=== PATIENT | male | born 1965 | race Caucasian/White ===

== ENCOUNTER → 2017-04-18 | Outpatient (CLI) | payer MEDICARE, OTHER ==
--- NOTE | 2017-04-18 16:48 | RAD ---
ABDOMEN LTD Clinical Indication: Polycythemia Vera; monitoring sz of Spleen; Comparison: None. Technique: Limited abdominal ultrasound to evaluate the liver and spleen was performed. Findings: The spleen is enlarged measuring 14.0 x 11.2 x 12.7 cm. Splenic artery peak systolic velocity measures 35.1 cm/s with a resistive index of 0.54. Splenic vein is patent. The liver is normal in size and echogenicity measuring 16.2 cm. Hepatopedal portal venous flow. Patent hepatic vein. IMPRESSION: Splenomegaly measuring up to 14.0 cm.
== END | disposition home or self-care (01) ==
LOC: US 10:05
DX: D45 Polycythemia vera (principal); R16.1 Splenomegaly, not elsewhere classified; R56.9 Unspecified convulsions
CPT/HCPCS: 76705

== ENCOUNTER → 2018-05-08 | Day surgery (SDC) | payer MEDICARE, OTHER ==
[~2018-05-08] MED LIST: ALLO300T PO; BENA20TA4 PO; HYDR500C16 PO; IV RINGERS,LACTATED 1000ML 1,000 ML IV SCH; LIDOCAINE 1% PF 2 ML VIAL. ID PRN; LIDOCAINE 1% PF 2 ML VIAL. ONE; METO100T7 PO; MIDAZOLAM HCL/PF 2 MG/2 ML VIAL. IV PRN; PROPOFOL 20 ML IV ONE; fentaNYL PF VIAL 100 MCG/2 ML VIAL IV PRN
[2018-05-08 10:10] VITALS: BP 130/76
--- NOTE | 2018-05-08 10:46 | HP ---
ADMIT DATE: 05/08/2018 UPDATE HISTORY AND PHYSICAL REASON FOR THE VISIT: History of colonic polyps. HISTORY OF PRESENT ILLNESS: A 52-year-old male whose past medical history is significant for gout and hypertension, is seen for history of polyps. Surveillance exam was performed in 2014. Interval exam was recommended at this time. There has been no melena and/or hematochezia. There has been no diarrhea or constipation. Weight and appetite are stable. He is otherwise without additional complaints. PAST MEDICAL HISTORY: History of colonic polyps, gout and hypertension. ALLERGIES: None. MEDICATIONS: Include allopurinol, benazepril, hydroxyurea and metoprolol. PAST SURGICAL HISTORY: Noncontributory. FAMILY AND SOCIAL HISTORY: Nonsmoker, social drinker. REVIEW OF SYSTEMS: Per records. PHYSICAL EXAMINATION: GENERAL: Reveals a well-nourished, well-developed male. VITAL SIGNS: Temperature is 97.9, pulse 105 and respirations 20. HEENT EXAMINATION: Normocephalic and atraumatic head. Pupils and extraocular muscles are not tested. Sclerae anicteric. NECK: Supple. LUNGS: Clear. CARDIOVASCULAR EXAMINATION: Reveals S1, S2, without S3, S4 or appreciable murmur. ABDOMEN: Exam reveals a soft abdomen. Normoactive bowel sounds, without appreciable hepatosplenomegaly. EXTREMITIES: Exam reveals no cyanosis, clubbing or edema. IMPRESSION AND PLAN: History of colonic polyps. Surveillance exam is recommended at this time. Risks and benefits of the procedure have been previously discussed with the patient, including the risk of hemorrhage and perforation and he is willing to proceed. RENEE DUNNE MD DR: MARIELA/viviana JOB#: [id number] / [id number]
== END | disposition home or self-care (01) ==
LOC: SURG 08:07
PROVIDERS: ATTEND Internal Medicine Gastroenterology
DX: Z12.11 Encounter for screening for malignant neoplasm of colon (principal); K64.0 First degree hemorrhoids; Z86.010 Personal history of colon polyps; I10 Essential (primary) hypertension; M10.9 Gout, unspecified; Z79.899 Other long term (current) drug therapy; Z72.89 Other problems related to lifestyle
CPT/HCPCS: G0105; J2704; 45378

== ENCOUNTER → 2019-12-31 | Outpatient (CLI) | payer MEDICARE ==
[2018-05-08 10:10] VITALS: BP 130/76
[~2019-12-31] MED LIST changes: -IV RINGERS,LACTATED 1000ML 1,000 ML IV SCH; -LIDOCAINE 1% PF 2 ML VIAL. ID PRN; -LIDOCAINE 1% PF 2 ML VIAL. ONE; -MIDAZOLAM HCL/PF 2 MG/2 ML VIAL. IV PRN; -PROPOFOL 20 ML IV ONE; -fentaNYL PF VIAL 100 MCG/2 ML VIAL IV PRN
[2019-12-31 14:40] LABS: BASO # 0.1 x10^3/uL (0.0-0.2); BASO % 1 % (0-3); EOS # 0.1 x10^3/uL (0.0-0.7); EOS % 1 % (0-3); HEMATOCRIT 39.8 % (39.0-53.0); LYMPH # 0.9 x10^3/uL (1.0-4.8); LYMPH % 13 % (24-48); MEAN CORPUSCULAR HEMOGLOBIN 45 pg (25-35); MEAN CORPUSCULAR HGB CONC 35 g/dL (31-37); MEAN CORPUSCULAR VOLUME 128 fL (79-100); MONO # 0.8 x10^3/uL (0.0-1.1); MONO % 11 % (0-9); NEUT # 5.3 x10^3/uL (1.8-7.7); NEUT % 74 % (31-73); PLATELET COUNT 248 x10^3/uL (140-400); RED BLOOD COUNT 3.11 x10^6/uL (4.30-5.70); RED CELL DISTRIBUTION WIDTH 13.3 % (11.5-14.5); WHITE BLOOD COUNT 7.1 x10^3/uL (4.0-11.0)
[2019-12-31 14:57] LABS: CALCIUM 7.9 mg/dL (8.5-10.1); CREATININE 0.8 mg/dL (0.7-1.3); GFR 100.7; POTASSIUM 3.9 mmol/L (3.5-5.1)
[2019-12-31 15:03] LABS: ALBUMIN 3.5 g/dL (3.4-5.0); TOTAL BILIRUBIN 0.8 mg/dL (0.2-1.0); TOTAL PROTEIN 7.1 g/dL (6.4-8.2)
[2019-12-31 15:08] LABS: PLT ESTIMATE ADEQUATE (ADEQUATE)
[2019-12-31 15:12] LABS: HYPERSEGS PRESENT
== END | disposition home or self-care (01) ==
LOC: ONCLAB 14:31
PROVIDERS: ATTEND Internal Medicine Hematology & Oncology
DX: D45 Polycythemia vera (principal)
CPT/HCPCS: 36415; 80053; 85025

== ENCOUNTER → 2020-03-31 | Outpatient (CLI) | payer MEDICARE ==
[2018-05-08 10:10] VITALS: BP 130/76
[2020-03-31 15:09] LABS: BASO # 0.1 x10^3/uL (0.0-0.2); BASO % 1 % (0-3); EOS # 0.1 x10^3/uL (0.0-0.7); EOS % 2 % (0-3); HEMATOCRIT 44.6 % (39.0-53.0); HEMOGLOBIN 15.5 g/dL (13.0-17.5); LYMPH # 1.2 x10^3/uL (1.0-4.8); LYMPH % 15 % (24-48); MEAN CORPUSCULAR HEMOGLOBIN 42 pg (25-35); MEAN CORPUSCULAR HGB CONC 35 g/dL (31-37); MEAN CORPUSCULAR VOLUME 122 fL (79-100); MONO % 12 % (0-9); NEUT # 5.7 x10^3/uL (1.8-7.7); NEUT % 70 % (31-73); PLATELET COUNT 213 x10^3/uL (140-400); RED BLOOD COUNT 3.67 x10^6/uL (4.30-5.70); RED CELL DISTRIBUTION WIDTH 13.3 % (11.5-14.5); WHITE BLOOD COUNT 8.1 x10^3/uL (4.0-11.0)
[2020-03-31 15:23] LABS: CALCIUM 8.8 mg/dL (8.5-10.1); CREATININE 0.8 mg/dL (0.7-1.3); GFR 100.7; POTASSIUM 3.9 mmol/L (3.5-5.1)
[2020-03-31 15:29] LABS: ALBUMIN 3.2 g/dL (3.4-5.0); ALBUMIN/GLOBULIN RATIO 0.8 (1.0-1.7); TOTAL BILIRUBIN 0.4 mg/dL (0.2-1.0); TOTAL PROTEIN 7.1 g/dL (6.4-8.2)
[2020-03-31 16:55] LABS: PLT ESTIMATE ADEQUATE (ADEQUATE)
== END ==
LOC: ONCLAB 14:54
PROVIDERS: ATTEND Internal Medicine Hematology & Oncology
DX: D45 Polycythemia vera (principal)
CPT/HCPCS: 36415; 80053; 85025

== ENCOUNTER → 2020-07-28 | Outpatient (CLI) | payer MEDICARE ==
[2018-05-08 10:10] VITALS: BP 130/76
[2020-07-28 14:49] LABS: BASO # 0.1 x10^3/uL (0.0-0.2); BASO % 1 % (0-3); EOS # 0.1 x10^3/uL (0.0-0.7); EOS % 1 % (0-3); HEMATOCRIT 42.4 % (39.0-53.0); LYMPH # 1.1 x10^3/uL (1.0-4.8); LYMPH % 13 % (24-48); MEAN CORPUSCULAR HEMOGLOBIN 43 pg (25-35); MEAN CORPUSCULAR HGB CONC 35 g/dL (31-37); MEAN CORPUSCULAR VOLUME 121 fL (79-100); MONO % 12 % (0-9); NEUT % 72 % (31-73); PLATELET COUNT 216 x10^3/uL (140-400); RED BLOOD COUNT 3.51 x10^6/uL (4.30-5.70); RED CELL DISTRIBUTION WIDTH 13.7 % (11.5-14.5); WHITE BLOOD COUNT 8.4 x10^3/uL (4.0-11.0)
[2020-07-28 16:18] LABS: PLT ESTIMATE ADEQUATE (ADEQUATE)
== END ==
LOC: ONCLAB 14:19
PROVIDERS: ATTEND Internal Medicine Hematology & Oncology
DX: D45 Polycythemia vera (principal)
CPT/HCPCS: 36415; 83615; 85025

== ENCOUNTER → 2020-10-27 | Outpatient (CLI) | payer MEDICARE ==
[2018-05-08 10:10] VITALS: BP 130/76
[2020-10-27 11:01] LABS: CALCIUM 8.6 mg/dL (8.5-10.1); CREATININE 0.8 mg/dL (0.7-1.3); GFR 100.7; POTASSIUM 4.3 mmol/L (3.5-5.1)
[2020-10-27 11:05] LABS: BASO # 0.1 x10^3/uL (0.0-0.2); BASO % 2 % (0-3); EOS # 0.1 x10^3/uL (0.0-0.7); EOS % 2 % (0-3); HEMATOCRIT 42.7 % (39.0-53.0); HEMOGLOBIN 14.9 g/dL (13.0-17.5); LYMPH # 0.8 x10^3/uL (1.0-4.8); LYMPH % 12 % (24-48); MEAN CORPUSCULAR HEMOGLOBIN 43 pg (25-35); MEAN CORPUSCULAR HGB CONC 35 g/dL (31-37); MONO # 0.8 x10^3/uL (0.0-1.1); MONO % 12 % (0-9); NEUT # 4.8 x10^3/uL (1.8-7.7); NEUT % 72 % (31-73); PLATELET COUNT 223 x10^3/uL (140-400); RED BLOOD COUNT 3.48 x10^6/uL (4.30-5.70); RED CELL DISTRIBUTION WIDTH 13.9 % (11.5-14.5); WHITE BLOOD COUNT 6.6 x10^3/uL (4.0-11.0)
[2020-10-27 11:06] LABS: MEAN CORPUSCULAR VOLUME 123 fL (79-100)
[2020-10-27 11:07] LABS: ALBUMIN 3.7 g/dL (3.4-5.0); TOTAL BILIRUBIN 0.7 mg/dL (0.2-1.0); TOTAL PROTEIN 7.3 g/dL (6.4-8.2)
[2020-10-27 12:22] LABS: PLT ESTIMATE ADEQUATE (ADEQUATE)
== END ==
LOC: ONCLAB 10:08
PROVIDERS: ATTEND Internal Medicine Hematology & Oncology
DX: D45 Polycythemia vera (principal)
CPT/HCPCS: 36415; 80053; 83615; 85025

== ENCOUNTER → 2021-02-02 | Outpatient (CLI) | payer MEDICARE ==
[2018-05-08 10:10] VITALS: BP 130/76
[2021-02-02 09:22] LABS: CALCIUM 8.4 mg/dL (8.5-10.1); CREATININE 0.8 mg/dL (0.7-1.3); GFR 100.4; POTASSIUM 4.4 mmol/L (3.5-5.1)
[2021-02-02 09:24] LABS: BASO # 0.2 x10^3/uL (0.0-0.2); BASO % 2 % (0-3); EOS # 0.1 x10^3/uL (0.0-0.7); EOS % 2 % (0-3); HEMATOCRIT 46.1 % (39.0-53.0); HEMOGLOBIN 15.8 g/dL (13.0-17.5); LYMPH % 11 % (24-48); MEAN CORPUSCULAR HEMOGLOBIN 42 pg (25-35); MEAN CORPUSCULAR HGB CONC 34 g/dL (31-37); MEAN CORPUSCULAR VOLUME 122 fL (79-100); MONO # 1.3 x10^3/uL (0.0-1.1); MONO % 14 % (0-9); NEUT # 6.6 x10^3/uL (1.8-7.7); NEUT % 71 % (31-73); PLATELET COUNT 276 x10^3/uL (140-400); RED BLOOD COUNT 3.79 x10^6/uL (4.30-5.70); RED CELL DISTRIBUTION WIDTH 13.1 % (11.5-14.5); WHITE BLOOD COUNT 9.2 x10^3/uL (4.0-11.0)
[2021-02-02 09:28] LABS: ALBUMIN 3.1 g/dL (3.4-5.0); ALBUMIN/GLOBULIN RATIO 0.7 (1.0-1.7); TOTAL BILIRUBIN 0.4 mg/dL (0.2-1.0); TOTAL PROTEIN 7.4 g/dL (6.4-8.2)
[2021-02-02 11:16] LABS: PLT ESTIMATE ADEQUATE (ADEQUATE)
== END ==
LOC: ONCLAB 08:38
PROVIDERS: ATTEND Internal Medicine Hematology & Oncology
DX: D45 Polycythemia vera (principal)
CPT/HCPCS: 36415; 80053; 83615; 85025

== ENCOUNTER → 2021-05-04 | Outpatient (CLI) | payer MEDICARE ==
[2018-05-08 10:10] VITALS: BP 130/76
[~2021-05-04] MED LIST changes: -BENA20TA4 PO; +BENA20TA84 PO
[2021-05-04 09:00] LABS: BASO # 0.2 x10^3/uL (0.0-0.2); BASO % 2 % (0-3); EOS # 0.1 x10^3/uL (0.0-0.7); EOS % 2 % (0-3); HEMATOCRIT 47.4 % (39.0-53.0); HEMOGLOBIN 15.7 g/dL (13.0-17.5); LYMPH % 13 % (24-48); MEAN CORPUSCULAR HEMOGLOBIN 39 pg (25-35); MEAN CORPUSCULAR HGB CONC 33 g/dL (31-37); MEAN CORPUSCULAR VOLUME 117 fL (79-100); MONO % 14 % (0-9); NEUT # 5.3 x10^3/uL (1.8-7.7); NEUT % 70 % (31-73); PLATELET COUNT 281 x10^3/uL (140-400); RED BLOOD COUNT 4.06 x10^6/uL (4.30-5.70); RED CELL DISTRIBUTION WIDTH 15.6 % (11.5-14.5); WHITE BLOOD COUNT 7.6 x10^3/uL (4.0-11.0)
[2021-05-04 09:21] LABS: ALBUMIN 2.9 g/dL (3.4-5.0); ALBUMIN/GLOBULIN RATIO 0.8 (1.0-1.7); CALCIUM 7.8 mg/dL (8.5-10.1); CREATININE 0.8 mg/dL (0.7-1.3); GFR 100.4; POTASSIUM 4.1 mmol/L (3.5-5.1); TOTAL BILIRUBIN 0.4 mg/dL (0.2-1.0); TOTAL PROTEIN 6.7 g/dL (6.4-8.2)
[2021-05-04 10:46] LABS: PLT ESTIMATE ADEQUATE (ADEQUATE)
[2021-05-04 10:48] LABS: TOXIC GRANULATION SLIGHT
== END ==
LOC: ONCLAB 08:44
PROVIDERS: ATTEND Internal Medicine Hematology & Oncology
DX: D45 Polycythemia vera (principal)
CPT/HCPCS: 36415; 80053; 83615; 85025

== ENCOUNTER → 2021-08-03 | Outpatient (CLI) | payer MEDICARE ==
[2018-05-08 10:10] VITALS: BP 130/76
[2021-08-03 08:56] LABS: EOS # 0.2 x10^3/uL (0.0-0.7); EOS % 2 % (0-3); HEMATOCRIT 49.8 % (39.0-53.0); HEMOGLOBIN 16.2 g/dL (13.0-17.5); LYMPH # 0.9 x10^3/uL (1.0-4.8); LYMPH % 9 % (24-48); MEAN CORPUSCULAR HEMOGLOBIN 39 pg (25-35); MEAN CORPUSCULAR HGB CONC 33 g/dL (31-37); MEAN CORPUSCULAR VOLUME 118 fL (79-100); MONO # 1.2 x10^3/uL (0.0-1.1); MONO % 12 % (0-9); PLATELET COUNT 279 x10^3/uL (140-400); RED BLOOD COUNT 4.22 x10^6/uL (4.30-5.70); RED CELL DISTRIBUTION WIDTH 14.2 % (11.5-14.5); WHITE BLOOD COUNT 10.1 x10^3/uL (4.0-11.0)
[2021-08-03 09:02] LABS: BASO % 2 % (0-3); NEUT % 76 % (31-73)
[2021-08-03 09:03] LABS: BASO # 0.2 x10^3/uL (0.0-0.2); CALCIUM 9.1 mg/dL (8.5-10.1); CREATININE 0.8 mg/dL (0.7-1.3); GFR 100.4; NEUT # 7.3 x10^3/uL (1.8-7.7); POTASSIUM 4.7 mmol/L (3.5-5.1)
[2021-08-03 09:09] LABS: ALBUMIN 3.3 g/dL (3.4-5.0); ALBUMIN/GLOBULIN RATIO 0.8 (1.0-1.7); TOTAL BILIRUBIN 0.5 mg/dL (0.2-1.0); TOTAL PROTEIN 7.6 g/dL (6.4-8.2)
[2021-08-03 09:42] LABS: PLT ESTIMATE ADEQUATE (ADEQUATE)
[2021-08-03 09:43] LABS: ANISOCYTOSIS SLIGHT
== END ==
LOC: ONCLAB 08:37
PROVIDERS: ATTEND Internal Medicine Hematology & Oncology
DX: D45 Polycythemia vera (principal)
CPT/HCPCS: 36415; 80053; 83615; 85025

== ENCOUNTER 2021-09-24 15:13 | Inpatient (IN) | payer OTHER, MEDICARE ==
[~2021-09-24] VITALS: Ht 177.8 cm; Wt 79.3 kg
[2021-09-24] MEDS ORDERED: MORPHINE SULFATE 2 MG/ML INJ. IVP ONE ×2 (16:30→17:15)
[2021-09-24 16:59] LABS: BASO # 0.2 x10^3/uL (0.0-0.2); BASO % 1 % (0-3); EOS % 0 % (0-3); HEMATOCRIT 49.5 % (39.0-53.0); HEMOGLOBIN 16.7 g/dL (13.0-17.5); LYMPH # 0.7 x10^3/uL (1.0-4.8); LYMPH % 5 % (24-48); MEAN CORPUSCULAR HEMOGLOBIN 36 pg (25-35); MEAN CORPUSCULAR HGB CONC 34 g/dL (31-37); MEAN CORPUSCULAR VOLUME 108 fL (79-100); MONO % 8 % (0-9); NEUT # 11.7 x10^3/uL (1.8-7.7); NEUT % 86 % (31-73); PLATELET COUNT 267 x10^3/uL (140-400); RED BLOOD COUNT 4.57 x10^6/uL (4.30-5.70); RED CELL DISTRIBUTION WIDTH 14.7 % (11.5-14.5); WHITE BLOOD COUNT 13.6 x10^3/uL (4.0-11.0)
[2021-09-24 17:21] LABS: CALCIUM 8.6 mg/dL (8.5-10.1); GFR 77.6; POTASSIUM 3.7 mmol/L (3.5-5.1)
--- NOTE | 2021-09-24 17:58 | PHYS DOC ---
Past Medical History Additional Past Medical Histor: speech issue Past Surgical History: No Surgical History Smoking Status: Never Smoker Alcohol Use: Occasionally General Adult EDM: Chief Complaint: HIP PAIN HPI: HPI: 55-year-old male presents after fall on left hip. Occurred just prior to arrival at work. No other injuries. Denies hitting his head or any LOC. Pain localized to left hip and left thigh. Able to move his toes. 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 No fever or chills. No LOC chest pain or shortness of breath before or after the event. Review of Systems: Review of Systems: Constitutional: Denies fever or chills. [] Eyes: Denies change in visual acuity. [] HENT: Denies nasal congestion or sore throat. [] Respiratory: Denies cough or shortness of breath. [] Cardiovascular: Denies chest pain or edema. [] GI: Denies abdominal pain, nausea, vomiting, bloody stools or diarrhea. [] : Denies dysuria. [] Musculoskeletal: Left hip and left thigh pain Integument: Denies rash. [] Neurologic: Denies headache, focal weakness or sensory changes. [] Endocrine: Denies polyuria or polydipsia. [] Lymphatic: Denies swollen glands. [] Psychiatric: Denies depression or anxiety. [] Heart Score: C/O Chest Pain: No Risk Factors: Risk Factors: DM, Current or recent (<one month) smoker, HTN, HLP, family his tory of CAD, obesity. Risk Scores: Score 0 - 3: 2.5% MACE over next 6 weeks - Discharge Home Score 4 - 6: 20.3% MACE over next 6 weeks - Admit for Clinical Observation Score 7 - 10: 72.7% MACE over next 6 weeks - Early Invasive Strategies Current Medications: Current Medications Medications (Trade) Dose Ordered Sig/Jemal Start Time Stop Time Status Last Admin Dose Admin Lorazepam (Ativan Inj) 1 mg 1X ONCE 09/24/21 18:15 09/24/21 18:16 Morphine Sulfate (Morphine Sulfate) 2 mg 1X ONCE 09/24/21 17:15 09/24/21 17:16 DC 09/24/21 17:05 2 MG Allergies: Allergies: Allergies Coded Allergies Type Severity Reaction Last Updated Verified No Known Drug Allergies 05/08/18 No Physical Exam: PE: Constitutional: Well developed, well nourished, no acute distress, non-toxic appearance. [] HENT: Normocephalic, atraumatic, bilateral external ears normal, oropharynx mois t, no oral exudates, nose normal. [] Eyes: PERRLA, EOMI, conjunctiva normal, no discharge. [] Neck: Normal range of motion, no tenderness, supple, no stridor. [] Cardiovascular:Heart rate regular rhythm, no murmur [] Lungs & Thorax: Bilateral breath sounds clear to auscultation [] Abdomen: Bowel sounds normal, soft, no tenderness, no masses, no pulsatile masses. [] Skin: Warm, dry, no erythema, no rash. [] Back: No tenderness, no CVA tenderness. [] Extremities: Left lower extremity shows deformity of left ankle which is likely chronic, intact posterior tibial pulse in the left lower extremity , pain with palpation over the left hip area limb is slightly rotated externally Neurologic: Alert and oriented X 3, normal motor function, normal sensory function, no focal deficits noted. [] Psychologic: Affect normal, judgement normal, mood normal. [] Current Patient Data: Labs: Laboratory Tests Test 09/24/21 16:51 White Blood Count 13.6 x10^3/uL (4.0-11.0) H Red Blood Count 4.57 x10^6/uL (4.30-5.70) Hemoglobin 16.7 g/dL (13.0-17.5) Hematocrit 49.5 % (39.0-53.0) Mean Corpuscular Volume 108 fL (79-100) H Mean Corpuscular Hemoglobin 36 pg (25-35) H Mean Corpuscular Hemoglobin Concent 34 g/dL (31-37) Red Cell Distribution Width 14.7 % (11.5-14.5) H Platelet Count 267 x10^3/uL (140-400) Neutrophils (%) (Auto) 86 % (31-73) H Lymphocytes (%) (Auto) 5 % (24-48) L Monocytes (%) (Auto) 8 % (0-9) Eosinophils (%) (Auto) 0 % (0-3) Basophils (%) (Auto) 1 % (0-3) Neutrophils # (Auto) 11.7 x10^3/uL (1.8-7.7) H Lymphocytes # (Auto) 0.7 x10^3/uL (1.0-4.8) L Monocytes # (Auto) 1.0 x10^3/uL (0.0-1.1) Eosinophils # (Auto) 0.0 x10^3/uL (0.0-0.7) Basophils # (Auto) 0.2 x10^3/uL (0.0-0.2) Sodium Level 136 mmol/L (136-145) Potassium Level 3.7 mmol/L (3.5-5.1) Chloride Level 101 mmol/L (98-107) Carbon Dioxide Level 24 mmol/L (21-32) Anion Gap 11 (6-14) Blood Urea Nitrogen 18 mg/dL (8-26) Creatinine 1.0 mg/dL (0.7-1.3) Estimated GFR (Cockcroft-Gault) 77.6 Glucose Level 132 mg/dL (70-99) H Calcium Level 8.6 mg/dL (8.5-10.1) Laboratory Tests 09/24/21 16:51 Laboratory Tests 09/24/21 16:51 Vital Signs: Vital Signs Date Time Temp Pulse Resp B/P (MAP) Pulse Ox O2 Delivery O2 Flow Rate FiO2 09/24/21 17:05 18 97 09/24/21 15:50 98.6 64 121/81 (94) Room Air 98.6 EKG: EKG: [] Radiology/Procedures: Radiology/Procedures: [] Course & Med Decision Making: Course & Med Decision Making Patient had difficulty getting imaging due to pain control. I will sign off the patient pending imaging to the oncoming physician. Elizabet Disclaimer: Elizabet Disclaimer: This electronic medical record was generated, in whole or in part, using a voice recognition dictation system. Departure Departure Impression: Primary Impression: Trauma left hip Additional Impression: Left leg pain Disposition: 30 STILL A PATIENT Referrals: CARLOS COREY (PCP) KIRSTEN MONTES MD September 24, 2021 17:58
[2021-09-24] MEDS ORDERED: ONDANSETRON PF 4 MG/2 ML VIAL. IVP PRN ×2 (18:45→22:30)
--- NOTE | 2021-09-24 19:10 | PDOC1 ---
History and Physical Date of Admission Date of Admission DATE: 09/24/21 TIME: 19:09 Identification/Chief Complaint Chief Complaint Left hip pain, fall Source Source: Patient History of Present Illness History of Present Illness Mr Hall is a 55yo male with PMHx polycythemia vera, HTN who comes to the ED from work after a fall. He fell onto his back, thinks he tripped over a stack of pallets and his left leg did not follow well, fell flat onto his back and was unable to get up, noticed his left leg looked shorter. Left hip radiograph with left intertrochanteric displaced fracture. WBC 13, MCV 108. Admitted for further care Past Medical History Cardiovascular: HTN Heme/Onc: Other (Polycythemia vera) Past Surgical History Past Surgical History: No pertinent history Family History Family History: Hypertension Social History Smoke: No ALCOHOL: social Drugs: None Current Problem List Problem List Problems Medical Problems: (1) Left leg pain Status: Acute (2) Trauma left hip Status: Acute Current Medications Current Medications Current Medications Morphine Sulfate (Morphine Sulfate) 2 mg 1X ONCE IVP Last administered on 09/24/21at 16:51; Start 09/24/21 at 16:30; Stop 09/24/21 at 16:34; Status DC Morphine Sulfate (Morphine Sulfate) 2 mg 1X ONCE IVP Last administered on 09/24/21at 17:05; Start 09/24/21 at 17:15; Stop 09/24/21 at 17:16; Status DC Lorazepam (Ativan Inj) 1 mg 1X ONCE IVP Last administered on 09/24/21at 17:58; Start 09/24/21 at 18:15; Stop 09/24/21 at 18:16; Status DC Hydromorphone HCl (Dilaudid) 1 mg 1X ONCE IVP Last administered on 09/24/21at 19:00; Start 09/24/21 at 19:15; Stop 09/24/21 at 19:16 Ondansetron HCl (Zofran) 4 mg PRN Q8HRS PRN IVP NAUSEA/VOMITING; Start 09/24/21 at 18:45; Stop 09/25/21 at 18:44 Morphine Sulfate (Morphine Sulfate) 4 mg PRN Q2HR PRN IVP PAIN; Start 09/24/21 at 18:45; Stop 5/10/22 at 18:44 Active Scripts Active Reported Allopurinol 300 Mg Tablet 300 Mg PO DAILY Hydroxyurea 500 Mg Capsule 500 Mg PO DAILY Metoprolol Tartrate 100 Mg Tablet 100 Mg PO BID Benazepril Hcl 20 Mg Tablet 20 Mg PO DAILY Allergies Allergies: Coded Allergies: No Known Drug Allergies (Unverified , 05/08/18) ROS General: No: Chills, Night Sweats, Fatigue, Malaise, Appetite, Other PSYCHOLOGICAL ROS: No: Anxiety, Behavioral Disorder, Concentration difficultie, Decreased libido, Depression, Disorientation, Hallucinations, Hostility, Irritablity, Memory difficulties, Mood Swings, Obsessive thoughts, Physical abuse, Sexual abuse, Sleep disturbances, Suicidal ideation, Other Eyes: No Blurry vision, No Decreased vision, No Double vision, No Dry eyes, No Excessive tearing, No Eye Pain, No Itchy Eyes, No Loss of vision, No Photophobia, No Scotomata, No Uses contacts, No Uses glasses, No Other HEENT: No: Heacaches, Visual Changes, Hearing change, Nasal congestion, Nasal discharge, Oral lesions, Sinus pain, Sore Throat, Epistaxis, Sneezing, Snoring, Tinnitus, Vertigo, Vocal changes, Other ALLERGY AND IMMUNOLOGY: No: Hives, Insect Bite Sensitivity, Itchy/Watery Eyes, Nasal Congestion, Post Nasal Drip, Seasonal Allergies, Other Hematological and Lymphatic: No: Bleeding Problems, Blood Clots, Blood Transfusions, Brusing, Night Sweats, Pallor, Swollen Lymph Nodes, Other ENDOCRINE: No: Breast Changes, Galactorrhea, Hair Pattern Changes, Hot Flashes, Malaise/lethargy, Mood Swings, Palpitations, Polydipsia/polyuria, Skin Changes, Temperature Intolerance, Unexpected Weight Changes, Other Breast: No New/Changing Breast Lumps, No Nipple changes, No Nipple discharge, No Other Respiratory: No: Cough, Hemoptysis, Orthopnea, Pleuritic Pain, Shortness of breath, SOB with excertion, Sputum Changes, Stridor, Tachypnea, Wheezing, Other Cardiovascular: No Chest Pain, No Palpitations, No Orthopnea, No Paroxysmal Noc. Dyspnea, No Edema, No Lt Headedness, No Other Gastrointestinal: No Nausea, No Vomiting, No Abdominal Pain, No Diarrhea, No Constipation, No Melena, No Hematochezia, No Other Genitourinary: No Dysuria, No Frequency, No Incontinence, No Hematuria, No Retention, No Discharge, No Urgency, No Pain, No Flank Pain, No Other, No , No , No , No , No , No , No Musculoskeletal: Yes Gait Disturbance, Yes Joint Pain, Yes Joint Stiffness, Yes Joint Swelling; No Muscle Pain, No Muscular Weakness, No Pain In:, No Swelling In:, No Other Neurological: No Behavorial Changes, No Bowel/Bladder ControlChng, No Confusion, No Dizziness, No Gait Disturbance, No Headaches, No Impaired Coord/balance, No Memory Loss, No Numbness/Tingling, No Seizures, No Speech Problems, No Tremors, No Visual Changes, No Weakness, No Other Skin: No Dry Skin, No Eczema, No Hair Changes, No Lumps, No Mole Changes, No Mottling, No Nail Changes, No Pruritus, No Rash, No Skin Lesion Changes, No Other, No Acne Physical Exam General: Alert, Oriented X3, Cooperative, mild distress HEENT: Atraumatic, PERRLA, EOMI, Mucous membr. moist/pink, Other (adentulous) Lungs: Clear to auscultation, Normal air movement Heart: S1S2, RRR, no thrills, no rubs, no gallops, no murmurs Abdomen: Normal bowel sounds, Soft, No tenderness, No hepatosplenomegaly, No masses Extremities: Other (left leg shortened, externally rotated) Skin: No rashes, No breakdown, No significant lesion Neuro: Normal tone, Sensation intact, Cranial nerves 3-12 NL, Reflexes 2+ Psych/Mental Status: Mental status NL, Mood NL Vitals Vitals Vital Signs Date Time Temp Pulse Resp B/P (MAP) Pulse Ox O2 Delivery O2 Flow Rate FiO2 09/24/21 19:00 18 99 09/24/21 15:50 98.6 64 121/81 (94) Room Air 98.6 Labs Labs Laboratory Tests Test 09/24/21 16:51 White Blood Count 13.6 x10^3/uL (4.0-11.0) Red Blood Count 4.57 x10^6/uL (4.30-5.70) Hemoglobin 16.7 g/dL (13.0-17.5) Hematocrit 49.5 % (39.0-53.0) Mean Corpuscular Volume 108 fL (79-100) Mean Corpuscular Hemoglobin 36 pg (25-35) Mean Corpuscular Hemoglobin Concent 34 g/dL (31-37) Red Cell Distribution Width 14.7 % (11.5-14.5) Platelet Count 267 x10^3/uL (140-400) Neutrophils (%) (Auto) 86 % (31-73) Lymphocytes (%) (Auto) 5 % (24-48) Monocytes (%) (Auto) 8 % (0-9) Eosinophils (%) (Auto) 0 % (0-3) Basophils (%) (Auto) 1 % (0-3) Neutrophils # (Auto) 11.7 x10^3/uL (1.8-7.7) Lymphocytes # (Auto) 0.7 x10^3/uL (1.0-4.8) Monocytes # (Auto) 1.0 x10^3/uL (0.0-1.1) Eosinophils # (Auto) 0.0 x10^3/uL (0.0-0.7) Basophils # (Auto) 0.2 x10^3/uL (0.0-0.2) Sodium Level 136 mmol/L (136-145) Potassium Level 3.7 mmol/L (3.5-5.1) Chloride Level 101 mmol/L (98-107) Carbon Dioxide Level 24 mmol/L (21-32) Anion Gap 11 (6-14) Blood Urea Nitrogen 18 mg/dL (8-26) Creatinine 1.0 mg/dL (0.7-1.3) Estimated GFR (Cockcroft-Gault) 77.6 Glucose Level 132 mg/dL (70-99) Calcium Level 8.6 mg/dL (8.5-10.1) Laboratory Tests Test 09/24/21 16:51 White Blood Count 13.6 x10^3/uL (4.0-11.0) Red Blood Count 4.57 x10^6/uL (4.30-5.70) Hemoglobin 16.7 g/dL (13.0-17.5) Hematocrit 49.5 % (39.0-53.0) Mean Corpuscular Volume 108 fL (79-100) Mean Corpuscular Hemoglobin 36 pg (25-35) Mean Corpuscular Hemoglobin Concent 34 g/dL (31-37) Red Cell Distribution Width 14.7 % (11.5-14.5) Platelet Count 267 x10^3/uL (140-400) Neutrophils (%) (Auto) 86 % (31-73) Lymphocytes (%) (Auto) 5 % (24-48) Monocytes (%) (Auto) 8 % (0-9) Eosinophils (%) (Auto) 0 % (0-3) Basophils (%) (Auto) 1 % (0-3) Neutrophils # (Auto) 11.7 x10^3/uL (1.8-7.7) Lymphocytes # (Auto) 0.7 x10^3/uL (1.0-4.8) Monocytes # (Auto) 1.0 x10^3/uL (0.0-1.1) Eosinophils # (Auto) 0.0 x10^3/uL (0.0-0.7) Basophils # (Auto) 0.2 x10^3/uL (0.0-0.2) Sodium Level 136 mmol/L (136-145) Potassium Level 3.7 mmol/L (3.5-5.1) Chloride Level 101 mmol/L (98-107) Carbon Dioxide Level 24 mmol/L (21-32) Anion Gap 11 (6-14) Blood Urea Nitrogen 18 mg/dL (8-26) Creatinine 1.0 mg/dL (0.7-1.3) Estimated GFR (Cockcroft-Gault) 77.6 Glucose Level 132 mg/dL (70-99) Calcium Level 8.6 mg/dL (8.5-10.1) Images Images Left hip radiograph with left intertrochanteric displaced fracture VTE Prophylaxis Ordered VTE Prophylaxis Devices: No VTE Pharmacological Prophylaxi: Yes Assessment/Plan Assessment/Plan Left hip fracture - NPO after midnight. Cont BB pre-operatively. No further testing prior to planned procedure Polycythemia vera - on hydrea, aspirin. Would need post-operatively anticoagulation with lovenox or NOAC Gout - on allopurinol ppx HTN - on MEIR and toprol XL FEN - NPO after midnight PPX - would recommend lovenox or NOAC post-operatively. Given polycythemia vera he is at significantly increased risk of blood clots FULL CODE Dispo - inpatient Justifications for Admission Other Justification WHITLEY ADAIR MD September 24, 2021 19:09
[2021-09-24] MEDS ORDERED: HYDROmorphone 2 MG/ML INJ. IVP ONE (19:15)
[2021-09-24 20:30] VITALS: BP 153/93
[2021-09-24] MEDS: MORPHINE SULFATE 4 MG/ML INJ. IVP PRN (22:08)
[2021-09-24 23:00] VITALS: BP 123/56
[2021-09-25] VITALS (14 sets, daily range): BP systolic 113–137; BP diastolic 65–88
[2021-09-25] MEDS ORDERED: ASPI-424 PO (00:10)
[2021-09-25] MEDS: MORPHINE SULFATE 4 MG/ML INJ. IVP PRN ×6 (02:48→15:59)
--- NOTE | 2021-09-25 05:10 | NUR ---
Patient admitted to at 2020 on 09/24. Patient states he tripped and fell. He complains of pain in left hip/leg and leg is swollen. Patient oriented to room and call light. RN will continue to monitor.
--- NOTE | 2021-09-25 06:17 | NUR ---
Per anesthesia, give scheduled dose of Metoprolol.
[2021-09-25] MEDS ORDERED: MORPHINE SULFATE 2 MG/ML INJ. IVP PRN (07:00)
[2021-09-25] MEDS ORDERED: IV RINGERS,LACTATED 1000ML 1,000 ML IV SCH (07:00)
[2021-09-25] MEDS ORDERED: HYDROmorphone 2 MG/ML INJ. IVP PRN (07:00)
[2021-09-25] MEDS ORDERED: fentaNYL PF VIAL 100 MCG/2 ML VIAL IVP PRN ×2 (07:00)
[2021-09-25] MEDS ORDERED: PROCHLORPERAZINE 10 MG/2 ML VIAL. IVP PRN (07:00)
[2021-09-25] MEDS: METOPROLOL SUCC 24HR ER 100 MG TAB.ER.24H. PO SCH ×2 (07:22→09:00)
[2021-09-25] MEDS ORDERED: fentaNYL PF VIAL 250 MCG/5 ML VIAL ONE (08:43)
[2021-09-25] MEDS ORDERED: DEXAMETHASONE SOD PHOS 4 MG/ML VIAL ONE (08:43)
[2021-09-25] MEDS ORDERED: MIDAZOLAM HCL/PF 2 MG/2 ML VIAL. ONE (08:43)
[2021-09-25] MEDS ORDERED: PROPOFOL 10 MG/ML (20ML) VIAL. IV ONE (08:43)
[2021-09-25] MEDS ORDERED: LIDOCAINE 2% PF 5 ML VIAL. ONE (08:43)
--- NOTE | 2021-09-25 08:43 | PDOC ---
[employer] PROGRESS NOTE Date of Service DOS: DATE: 09/25/21 TIME: 08:42 Chief Complaint Chief Complaint Fall at work with hip fracture Leukocytosis Polycythemia vera Hypertension Gout History of Present Illness History of Present Illness 09/25/2021 Patient seen and examined Discussed with RN Chart reviewed His left leg is externally rotated and shorter He is probably going to surgery later today Vitals/I&O Vitals/I&O: Vital Signs Date Time Temp Pulse Resp B/P (MAP) Pulse Ox O2 Delivery O2 Flow Rate FiO2 09/25/21 08:02 16 97 Room Air 09/25/21 07:22 92 128/79 09/25/21 07:00 97.9 97.9 I & O 09/24/21 09/24/21 09/25/21 15:00 23:00 07:00 Intake Total 0 ml Balance 0 ml Physical Exam General: Alert, Oriented X3, Cooperative, mild distress Abdomen: Normal bowel sounds, Soft, No tenderness, No hepatosplenomegaly, No masses Extremities: Other (left leg shortened, externally rotated) Skin: No rashes, No breakdown, No significant lesion Labs Labs: Laboratory Tests Test 09/24/21 16:51 09/25/21 08:10 White Blood Count 13.6 x10^3/uL (4.0-11.0) Red Blood Count 4.57 x10^6/uL (4.30-5.70) Hemoglobin 16.7 g/dL (13.0-17.5) Hematocrit 49.5 % (39.0-53.0) Mean Corpuscular Volume 108 fL (79-100) Mean Corpuscular Hemoglobin 36 pg (25-35) Mean Corpuscular Hemoglobin Concent 34 g/dL (31-37) Red Cell Distribution Width 14.7 % (11.5-14.5) Platelet Count 267 x10^3/uL (140-400) Neutrophils (%) (Auto) 86 % (31-73) Lymphocytes (%) (Auto) 5 % (24-48) Monocytes (%) (Auto) 8 % (0-9) Eosinophils (%) (Auto) 0 % (0-3) Basophils (%) (Auto) 1 % (0-3) Neutrophils # (Auto) 11.7 x10^3/uL (1.8-7.7) Lymphocytes # (Auto) 0.7 x10^3/uL (1.0-4.8) Monocytes # (Auto) 1.0 x10^3/uL (0.0-1.1) Eosinophils # (Auto) 0.0 x10^3/uL (0.0-0.7) Basophils # (Auto) 0.2 x10^3/uL (0.0-0.2) Sodium Level 136 mmol/L (136-145) Potassium Level 3.7 mmol/L (3.5-5.1) Chloride Level 101 mmol/L (98-107) Carbon Dioxide Level 24 mmol/L (21-32) Anion Gap 11 (6-14) Blood Urea Nitrogen 18 mg/dL (8-26) Creatinine 1.0 mg/dL (0.7-1.3) Estimated GFR (Cockcroft-Gault) 77.6 Glucose Level 132 mg/dL (70-99) Calcium Level 8.6 mg/dL (8.5-10.1) 25-Hydroxy Vitamin D Total 41.9 ng/mL (30-100) SARS-CoV-2 Antigen (Rapid) Negative (NEGATIVE) Assessment and Plan Assessmemt and Plan Problems Medical Problems: (1) Left leg pain Status: Acute (2) Trauma left hip Status: Acute Left hip fracture -probably going to surgery later today if Ortho agrees Polycythemia vera - on hydrea, aspirin. Would need post-operatively anticoagulation with lovenox or NOAC Gout - on allopurinol ppx HTN - on MEIR and toprol XL FEN - NPO after midnight PPX - would recommend lovenox or NOAC post-operatively. Given polycythemia vera he is at significantly increased risk of blood clots FULL CODE Dispo - inpatient Comment Review of Relevant I have reviewed the following items edd (where applicable) has been applied. Medications: Current Medications Medications (Trade) Dose Ordered Sig/Jemal Route PRN Reason Start Time Stop Time Status Last Admin Dose Admin Morphine Sulfate (Morphine Sulfate) 2 mg 1X ONCE IVP 09/24/21 16:30 09/24/21 16:34 DC 09/24/21 16:51 Morphine Sulfate (Morphine Sulfate) 2 mg 1X ONCE IVP 09/24/21 17:15 09/24/21 17:16 DC 09/24/21 17:05 Lorazepam (Ativan Inj) 1 mg 1X ONCE IVP 09/24/21 18:15 09/24/21 18:16 DC 09/24/21 17:58 Hydromorphone HCl (Dilaudid) 1 mg 1X ONCE IVP 09/24/21 19:15 09/24/21 19:16 DC 09/24/21 19:00 Morphine Sulfate (Morphine Sulfate) 4 mg PRN Q2HR PRN IVP PAIN 09/24/21 18:45 09/25/21 08:02 Metoprolol Succinate (Toprol Xl) 100 mg DAILY PO 09/25/21 07:00 09/25/21 07:22 Justifications for Admission Other Justification FLORENCE RODRIGUEZ III DO September 25, 2021 08:43
[2021-09-25] MEDS ORDERED: ONDANSETRON PF 4 MG/2 ML VIAL. ONE (08:44)
[2021-09-25] MEDS: LISINOPRIL 20 MG TABLET PO SCH (09:00)
[2021-09-25] MEDS: HYDROXYUREA 500 MG CAPSULE PO SCH (09:00)
[2021-09-25] MEDS ORDERED: TV=62ml MORPHINE 5 MG, KETOROLAC 30 MG, ROPIV, EPI INT ART ONE (09:00)
[2021-09-25] MEDS: ALLOPURINOL 300 MG TABLET. PO SCH (09:00)
--- NOTE | 2021-09-25 09:00 | NUR ---
patient taken to surgery.
--- NOTE | 2021-09-25 09:02 | PDOC4 ---
Operative Note Operative Note Date of procedure: 09/25/2021 Surgeon: Abram Gibbons Mold Release Worker: Sanchez Mireles Preoperative diagnosis: Closed left displaced comminuted intertrochanteric hip fracture Postoperative diagnosis: Same Procedure performed: Closed reduction and intramedullary nailing left hip fracture Anesthesia: General Findings: Acute fracture Complications: none Blood loss: 200mL Components inserted: [employer] InterTAN nail 10 x 38 cm, 105 leg screw, c ompression screw and a distal interlocking screw were used Reason for procedure: Patient is a very pleasant 55-year-old gentleman who had a ground-level fall and suffered the above injury. Due to pain and inability ambulate he was brought into the emergency department. I seen him in consultation I discussed the risk benefits and alternatives to surgery with he and his brother who is power of disability attorney. They agreed to proceed. Description of procedure: Patient was greeted in the preoperative area by myself or the correct extremity was verified and marked. Is taken to the operative suite and his antibiotics were started as he was brought back. Once in the operating room, he was transferred gently spine to the operating table, the fracture table and underwent successful induction of a general anesthetic. He was then positioned for surgery, left leg in traction ski boot right leg in a well leg earl, all pressure points were padded and he was secured to the bed. I then perform my closed reduction maneuver consisting of traction, adjusting rotation and adduction. Biplanar fluoroscopy was used to guide my reduction. We then proceeded prep and drape left lower extremity and hip in her usual sterile fashion and conducted a standard preoperative timeout. I then palpated marked surface anatomy and used C arm to help guide me for placement of my incisions as well. I made an incision at the intersection point from the greater trochanter and ASIS. I bluntly dissected down to the tip of the greater trochanter and used biplanar fluoroscopy to guide my placement of my initial guidepin and then advanced this down past the lesser trochanter. I then used the entry reamer and soft tissue protector. I then placed a long guidewire down to the knee, confirming appropriate position with biplanar fluoroscopy there as well. I then measured for the length of my nail. I then began reaming and ream ed up until I encountered good cortical chatter. After this I gently impacted my nail into position taking C-arm images at the knee and hip to help guide me. After this I remove the guidewire and placed my lateral trochars for my leg and compression screw again skin and incised skin accordance with this and then spread down to bone. I seated these trochars and used biplanar fluoroscopy to guide me into close to a center center position as I was able to achieve. I then measured and drilled for my compression screw and placed a derotation bar followed by drilling and then placing my leg screw. I then placed my compression screw generating about to 3 mm of compression. After this I remove this assembly and directed my attention to reposition the leg and using perfect penobscot technique to place a distal interlocking screw. I then removed all insertion devices and took my final images and was happy with hardware position and fracture reduction. After this the incisions were thoroughly irrigated out with sterile saline. I injected my periarticular mixture into the periincisional soft tissues. I then closed fascia with simple interrupted 0 Vicryl followed by inverted interrupted 2-0 Vicryl for subcutaneous tissue and 3 oh strata fix for skin, in a buried subcuticular fashion. All counts were correct x2 prior to wound closure. No complications. Traction been let off after placement of distal interlocking screw. At the conclusion, the incisions and hip area were cleansed and dried and a sterile dressing was applied to each. The patient was then awakened from anesthesia and transferred gently supine to the hospital bed and taken to PACU in stable and extubated condition. Postoperative plan is to readmit the patient under the care of the hospitalist. DVT and antibiotic prophylaxis as well as PT and OT have been ordered. I will follow along with his postoperative course. ABRAM GIBBONS II, MD September 25, 2021 09:02
[2021-09-25 09:14] LABS: BASO # 0.1 x10^3/uL (0.0-0.2); BASO % 1 % (0-3); EOS % 0 % (0-3); HEMATOCRIT 47.3 % (39.0-53.0); HEMOGLOBIN 15.9 g/dL (13.0-17.5); LYMPH # 0.6 x10^3/uL (1.0-4.8); LYMPH % 5 % (24-48); MEAN CORPUSCULAR HEMOGLOBIN 37 pg (25-35); MEAN CORPUSCULAR HGB CONC 34 g/dL (31-37); MEAN CORPUSCULAR VOLUME 108 fL (79-100); MONO # 1.7 x10^3/uL (0.0-1.1); MONO % 13 % (0-9); NEUT # 10.7 x10^3/uL (1.8-7.7); NEUT % 82 % (31-73); PLATELET COUNT 237 x10^3/uL (140-400); RED BLOOD COUNT 4.37 x10^6/uL (4.30-5.70); RED CELL DISTRIBUTION WIDTH 14.7 % (11.5-14.5); WHITE BLOOD COUNT 13.1 x10^3/uL (4.0-11.0)
[2021-09-25] MEDS ORDERED: ePHEDrine PF IN SALINE 50 MG/10 ML SYRINGE. IV ONE (09:23)
[2021-09-25 09:40] LABS: CALCIUM 8.5 mg/dL (8.5-10.1); CREATININE 0.8 mg/dL (0.7-1.3); GFR 100.4; POTASSIUM 3.8 mmol/L (3.5-5.1)
--- NOTE | 2021-09-25 11:48 | NUR ---
patient arrived back to unit, in bed in room. surgical dressing clean, dry and intact. Patient alert and oriented.
--- NOTE | 2021-09-25 12:22 | EKG ---
[facility] [address] [place] [address] Test Date: 2021-09-24 Test Time: 17:15:13 Pat Name: EBONIE STEWART Department: Room: 440 1 Gender: M Still Operator Batch Or Continuous: : 1965 Requested By: KIRSTEN MONTES Order Number: [id number] Reading MD: Sameer Sanchez Measurements Intervals [place] Rate: 82 P: VT: QRS: 48 QRSD: 84 T: 64 QT: 370 QTc: 435 Interpretive Statements SINUS RHYTHM ATRIAL PREMATURE COMPLEXES Electronically Signed On 09-26-2021 17:15:29 CDT by Sameer Sanchez
--- NOTE | 2021-09-25 12:22 | RAD ---
EXAMINATION: XR CHEST 1V CLINICAL HISTORY: Preoperative clearance. EXAM DATE/TIME: 09/24/2021 7:07 PM COMPARISON: None FINDINGS: Lines, Tubes, and Devices: None. Cardiomediastinal Silhouette: Normal heart size. Lungs and Pleura: No evidence of focal airspace consolidation or pleural effusion. Nonspecific mild d iffuse interstitial prominence, possibly chronic. Bones and Soft Tissues: No acute osseous abnormality. IMPRESSION: No definitive evidence of acute cardiopulmonary abnormality. Electronically signed by: Dannie Baumann DO (09/24/2021 8:42 PM) WILDA
--- NOTE | 2021-09-25 12:22 | RAD ---
EXAMINATION: XR FEMUR_LEFT, XR LT HIP (WITH OR WITHOUT PELVIS) 2 VIEWS, XR KNEE_LT 1-2 VIEWS, XR LT T IBIA + FIBULA CLINICAL HISTORY: Left lower extremity pain following fall. TECHNIQUE: XR FEMUR_LEFT, XR LT HIP (WITH OR WITHOUT PELVIS) 2 VIEWS, XR KNEE_LT 1-2 VIEWS, XR LT TIB IA + FIBULA COMPARISON: None FINDINGS/ IMPRESSION: LEFT HIP: Comminuted intertrochanteric left femur fracture with varus alignment in internal rotation of the hip . Minimal displacement at the lesser trochanter. No evidence of acute pelvic fracture. Lower sacrum a nd coccyx obscured by overlying stool and bowel gas. Right hip joint, SI joints, and pubic symphysis maintained. LEFT FEMUR: No evidence of acute fracture involving the femoral shaft. LEFT KNEE: No evidence of acute fracture on limited evaluation with obliqued frontal and lateral images and over lying densities on lateral images obscuring fine bony and soft tissue detail. Joint space is suboptim ally evaluated. LEFT TIBIA/FIBULA: Limited evaluation with overlying densities on frontal image obscuring fine bony and soft tissue deta il. No definitive evidence of acute fracture, however, the mid fibular diaphysis appears diminutive a nd somewhat irregular with poorly visualized fracture in the distal fibular diaphysis, possibly relat ed to remote posttraumatic deformity. Acute fracture cannot be excluded and clinical correlation is r ecommended. Postoperative changes in the distal tibial metadiaphysis with surgical staple and and scr ew. Medial subluxation of the tibia relative to the talus, incompletely evaluated and also possibly r elated to remote trauma but an acute injury cannot be excluded. Electronically signed by: Dannie Baumann DO (09/24/2021 7:56 PM) ANALIA
[2021-09-26] VITALS (7 sets, daily range): BP systolic 99–136; BP diastolic 53–84
[2021-09-26] MEDS: MORPHINE SULFATE 4 MG/ML INJ. IVP PRN (03:00)
[2021-09-26] MEDS: oxyCODONE/APAP 5/325 1 TAB TABLET PO PRN ×3 (08:03→16:27)
[2021-09-26] MEDS: ALLOPURINOL 300 MG TABLET. PO SCH (09:45)
[2021-09-26] MEDS: METOPROLOL SUCC 24HR ER 100 MG TAB.ER.24H. PO SCH (09:45)
[2021-09-26] MEDS: LISINOPRIL 20 MG TABLET PO SCH (09:45)
[2021-09-26] MEDS: HYDROXYUREA 500 MG CAPSULE PO SCH (09:46)
[2021-09-26] MEDS: ENOXAPARIN 40 MG/0.4 ML SYRINGE. SQ SCH (09:47)
--- NOTE | 2021-09-26 15:57 | PDOC ---
[facility] [facility] PROGRESS NOTE Date of Service DOS: DATE: 09/26/21 TIME: 15:56 Chief Complaint Chief Complaint Fall at work with hip fracture Leukocytosis Polycythemia vera Hypertension Gout History of Present Illness History of Present Illness 09/26/2021 No acute events overnight. Patient seen examined bedside. Complaining of 3 out of 10 pain while sitting in bed. Tolerating diet. Pending PT OT evaluation. Patient's chart, labs, images were reviewed and discussed with RN 09/25/2021 Patient seen and examined Discussed with RN Chart reviewed His left leg is externally rotated and shorter He is probably going to surgery later today Vitals/I&O Vitals/I&O: Vital Signs Date Time Temp Pulse Resp B/P (MAP) Pulse Ox O2 Delivery O2 Flow Rate FiO2 09/26/21 15:00 98.1 86 20 100/61 (74) 96 Room Air 98.1 09/25/21 20:00 5.0 I & O 0 09/25/21 09/25/21 09/26/21 15:00 23:00 07:00 Intake Total 1490 ml 1300 ml Output Total 200 ml 1250 ml 600 ml Balance 1290 ml -1250 ml 700 ml Physical Exam General: Alert, Oriented X3, Cooperative, mild distress Abdomen: Normal bowel sounds, Soft, No tenderness, No hepatosplenomegaly, No masses Extremities: Other (left leg shortened, externally rotated) Skin: No rashes, No breakdown, No significant lesion Assessment and Plan Assessmemt and Plan Problems Medical Problems: (1) Left leg pain Status: Acute (2) Trauma left hip Status: Acute Comment Review of Relevant I have reviewed the following items edd (where applicable) has been applied. Medications: Current Medications Medications (Trade) Dose Ordered Sig/Jemal Route PRN Reason Start Time Stop Time Status Last Admin Dose Admin Enoxaparin Sodium (Lovenox 40mg Syringe) 40 mg Q24H SQ 09/26/21 09:00 09/26/21 09:47 Oxycodone/ Acetaminophen (Percocet 5/325) 1 tab PRN Q4HRS PRN PO PAIN 09/26/21 07:30 09/26/21 12:10 Justifications for Admission Other Justification DANIELLE RUTLEDGE MD September 26, 2021 15:57
[2021-09-27] MEDS: oxyCODONE/APAP 5/325 1 TAB TABLET PO PRN ×2 (00:33→08:39)
[2021-09-27 03:58] VITALS: BP 130/70
[2021-09-27] MEDS ORDERED: ASPI325T8 PO (07:31)
[2021-09-27] MEDS ORDERED: OXYC1TAB15 PO (07:31)
--- NOTE | 2021-09-27 07:34 | DISCH ---
DISCHARGE INSTRUCTIONS Condition on Discharge Condition on Discharge: Stable Activity After Discharge Activity Instructions for Disc: Avoid exertion Lifting Instructions after Dis: Do not lift >10 pounds Weight Bearing Status after Di: As tolerated Diet after Discharge Diet after Discharge: Cardiac Follow-Up Follow up with: PCP within 2 weeks of discharge Follow Up With: Orthopedic surgery within 2 weeks for postoperative wound check DANIELLE RUTLEDGE MD September 27, 2021 07:34
[2021-09-27] MEDS ORDERED: SENN1TAB99 PO (07:35)
[2021-09-27 08:00] VITALS: BP 129/74
[2021-09-27] MEDS: ALLOPURINOL 300 MG TABLET. PO SCH (08:31)
[2021-09-27] MEDS: METOPROLOL SUCC 24HR ER 100 MG TAB.ER.24H. PO SCH (08:32)
[2021-09-27] MEDS: ENOXAPARIN 40 MG/0.4 ML SYRINGE. SQ SCH (08:32)
[2021-09-27] MEDS: LISINOPRIL 20 MG TABLET PO SCH (08:32)
[2021-09-27] MEDS: HYDROXYUREA 500 MG CAPSULE PO SCH (08:39)
--- NOTE | 2021-09-27 09:26 | PDOC ---
ORTHO PROGRESS NOTES DATE: 09/27/21 TIME: 09:24 Subjective He has been feeling better, we started him on Percocet yesterday. He has been up walking twice yesterday with a walker. He feels like overall he would like to go home today. Vitals Vital Signs Date Time Temp Pulse Resp B/P (MAP) Pulse Ox O2 Delivery O2 Flow Rate FiO2 09/27/21 08:39 18 Room Air 09/27/21 08:32 75 129/74 09/27/21 08:00 98.2 94 98.2 Notes He is awake and alert and sitting in bed. Dressings are intact and dry. Normal motor and sensation are present in his foot. Assessment and Plan I think he is progressing well. I recommend anticoagulation for 4 weeks. He can weight-bear as tolerated with a walker. I think home health would benefit him as well. I will see him back in outpatient clinic in 2 weeks, sooner should a problem arise MESHA GIBBONS II, MD September 27, 2021 09:26
--- NOTE | 2021-09-27 11:08 | SNU/HH DC ---
DISCHARGE WITH HOME HEALTH DISCHARGE INFORMATION: Discharge Date: September 27, 2021 Final Diagnosis: Problems Medical Problems: (1) Left leg pain Status: Acute (2) Trauma left hip Status: Acute Condition on Discharge: Stable CODE STATUS: Code Status: Full HOME HEALTH: Face to Face: I certify this patient is under my care and that I, or a nurse practitioner or physician's assistant professor of chemistry working with me, had a face to face encounter that meets the physician face to face encounter requirements with this patient on []. Medical Complications: S/P Joint Replacement Long-Term For: Assess Cardiopulm Status, Assess & Educate Safety, Assess/Skilled Observatio, Medication Management, Pain Management RN For Eval/Treatment: Yes Physical Therapy For: Evalulation/Treatment Occupational Therapy For: Evaluation/Treatment Home Health Aide For: Self-care Pt Meets Homebound Status: Unsteady balance w/ amb,, Extreme weakness w/ amb., Limited distance walking, Unable to negotiate home POST DISCHARGE ORDERS: Activity Instructions for Disc: Avoid exertion Weight Bearing Status after Di: As tolerated FOLLOW-UP: Follow up with: PCP within 2 weeks of discharge Follow Up With: Orthopedic surgery within 2 weeks for postoperative wound check CERTIFICATION STATEMENT: Certification Statement: Certification Statement: Based on the above finding, I certify that this patient is confined to the home and needs intermittent mcc care, physical therapy and/or speech therapy, or continues to need occupational therapy.~ This patient is under my care, and I have initiated the establishment of the plan of care.~ This patient will be followed by myself or a community physician who will periodically review the plan of care. Home Meds Active Scripts Sennosides/Docusate Sodium (Senna-Docusate Sodium Tablet) 1 Each Tablet, 2 TAB PO BID PRN for CONSTIPATION for 5 Days, #20 TAB 0 Refills Prov:DANIELLE RUTLEDGE MD 09/27/21 Aspirin (ASPIRIN) 325 Mg Tablet, 1 TAB PO BID PRN for dvt prophylaxis for 30 Days, #60 TAB 5 Refills Prov:DANIELLE RUTLEDGE MD 09/27/21 Oxycodone/Apap 5-325 (PERCOCET 5-325 MG TABLET ) 1 Each Tablet, 1 TAB PO PRN Q4-6HRS PRN for PAIN for 3 Days, #18 TAB Prov:DANIELLE RUTLEDGE MD 5/12/22 Reported Medications Allopurinol (ALLOPURINOL) 300 Mg Tablet, 300 MG PO DAILY for gout, TAB 05/08/18 Hydroxyurea (HYDROXYUREA) 500 Mg Capsule, 500 MG PO DAILY for blood cell count, CAP 05/08/18 Metoprolol Tartrate (METOPROLOL TARTRATE) 100 Mg Tablet, 100 MG PO BID for FOR HYPERTENSION, #60 TAB 0 Refills 05/08/18 Benazepril Hcl (BENAZEPRIL HCL) 20 Mg Tablet, 20 MG PO DAILY for bp, TAB 05/08/18 Discontinued Reported Medications Aspirin (ADULT LOW DOSE ASPIRIN EC) 81 Mg Tablet., 1 TAB PO DAILY for ....., T AB 09/25/21 DANIELLE RUTLEDGE MD September 27, 2021 11:08
[2021-09-27 19:35] VITALS: BP 131/55
[2021-09-27 23:10] VITALS: BP 139/54
[2021-09-28 03:28] VITALS: BP 135/83
[2021-09-28] MEDS: oxyCODONE/APAP 5/325 1 TAB TABLET PO PRN ×2 (03:28→20:49)
[2021-09-28 07:00] VITALS: BP 121/84
[2021-09-28] MEDS: METOPROLOL SUCC 24HR ER 100 MG TAB.ER.24H. PO SCH (08:34)
[2021-09-28] MEDS: LISINOPRIL 20 MG TABLET PO SCH (08:34)
[2021-09-28] MEDS: ALLOPURINOL 300 MG TABLET. PO SCH (08:34)
[2021-09-28] MEDS: ENOXAPARIN 40 MG/0.4 ML SYRINGE. SQ SCH (08:35)
[2021-09-28] MEDS: HYDROXYUREA 500 MG CAPSULE PO SCH (08:37)
--- NOTE | 2021-09-28 08:40 | PDOC ---
ORTHO PROGRESS NOTES DATE: 09/28/21 TIME: 08:39 Subjective Patient tells me he was able to get up and walk around little bit with a walker and therapy. His pain is controlled. No new complaints Vitals Vital Signs Date Time Temp Pulse Resp B/P (MAP) Pulse Ox O2 Delivery O2 Flow Rate FiO2 09/28/21 08:34 76 121/84 09/28/21 07:00 99.7 18 96 Room Air 99.7 09/27/21 08:00 5.0 Notes He is awake and alert in bed. Dressing is intact and dry. Normal motor and sensation remain present in his left lower extremity Assessment and Plan He is now pending rehab placement. From my standpoint he can be transferred when a bed is available. Weight-bear as tolerated with a walker. He should continue PT and OT, anticoagulation, I will see him back in 2 weeks MESHA GIBBONS II, MD September 28, 2021 08:40
[2021-09-28 11:00] VITALS: BP 107/66
[2021-09-28] MEDS: POLYETHYLENE GLYCOL 3350 17 GM PACKET. PO SCH ×2 (12:16→16:43)
[2021-09-28] MEDS ORDERED: MAGNESIUM CITRATE 296 ML SOLUTION. PO ONE (12:30)
--- NOTE | 2021-09-28 14:35 | PDOC ---
[facility] [facility] PROGRESS NOTE Date of Service DOS: DATE: 09/27/21 TIME: 14:34 Late entry Chief Complaint Chief Complaint Fall at work with hip fracture Leukocytosis Polycythemia vera Hypertension Gout History of Present Illness History of Present Illness 09/27/2021 No acute events overnight. Patient seen examined bedside. Pain is moderately well controlled. Not moving around too well. Still need assistance. PT OT evaluation ongoing. Patient's chart, labs, images were reviewed and discussed with RN 09/26/2021 No acute events overnight. Patient seen examined bedside. Complaining of 3 out of 10 pain while sitting in bed. Tolerating diet. Pending PT OT evaluation. Patient's chart, labs, images were reviewed and discussed with RN 09/25/2021 Patient seen and examined Discussed with RN Chart reviewed His left leg is externally rotated and shorter He is probably going to surgery later today Vitals/I&O Vitals/I&O: Vital Signs Date Time Temp Pulse Resp B/P (MAP) Pulse Ox O2 Delivery O2 Flow Rate FiO2 09/28/21 11:00 99.6 79 18 107/66 (80) 98 Room Air 99.6 09/27/21 08:00 5.0 I & O 09/27/21 09/27/21 09/28/21 15:00 23:00 07:00 Intake Total 120 ml 240 ml 240 ml Output Total 600 ml 1150 ml 200 ml Balance -480 ml -910 ml 40 ml Physical Exam General: Alert, Oriented X3, Cooperative, mild distress Abdomen: Normal bowel sounds, Soft, No tenderness, No hepatosplenomegaly, No masses Extremities: Other (left leg shortened, externally rotated) Skin: No rashes, No breakdown, No significant lesion Assessment and Plan Assessmemt and Plan Problems Medical Problems: (1) Left leg pain Status: Acute (2) Trauma left hip Status: Acute Comment Review of Relevant I have reviewed the following items edd (where applicable) has been applied. Medications: Current Medications Medications (Trade) Dose Ordered Sig/Jemal Route PRN Reason Start Time Stop Time Status Last Admin Dose Admin Magnesium Citrate (Citroma) 296 ml 1X ONCE PO 09/28/21 12:30 09/28/21 12:31 DC 09/28/21 12:16 Polyethylene Glycol (miraLAX PACKET) 17 gm Q6HRS PO 09/28/21 12:30 09/28/21 12:16 Justifications for Admission Other Justification DANIELLE RUTLEDGE MD September 28, 2021 14:35
--- NOTE | 2021-09-28 14:37 | PDOC ---
[facility] [facility] PROGRESS NOTE Date of Service DOS: DATE: 09/28/21 TIME: 14:35 Chief Complaint Chief Complaint Fall at work with hip fracture Leukocytosis Polycythemia vera Hypertension Gout History of Present Illness History of Present Illness 09/28/2021 No acute events overnight. Patient seen examined bedside. Developed low-grade fever this morning of 99.7. It has been persistent since last night. Saturating well on room air. Will work-up for postoperative wound infection and may be pneumonia. Will obtain CBC and BMP and chest x-ray. . 09/27/2021 No acute events overnight. Patient seen examined bedside. Pain is moderately well controlled. Not moving around too well. Still need assistance. PT OT evaluation ongoing. Patient's chart, labs, images were reviewed and discussed with RN 09/26/2021 No acute events overnight. Patient seen examined bedside. Complaining of 3 out of 10 pain while sitting in bed. Tolerating diet. Pending PT OT evaluation. Patient's chart, labs, images were reviewed and discussed with RN 09/25/2021 Patient seen and examined Discussed with RN Chart reviewed His left leg is externally rotated and shorter He is probably going to surgery later today Vitals/I&O Vitals/I&O: Vital Signs Date Time Temp Pulse Resp B/P (MAP) Pulse Ox O2 Delivery O2 Flow Rate FiO2 09/28/21 11:00 99.6 79 18 107/66 (80) 98 Room Air 99.6 09/27/21 08:00 5.0 I & O 09/27/21 09/27/21 09/28/21 15:00 23:00 07:00 Intake Total 120 ml 240 ml 240 ml Output Total 600 ml 1150 ml 200 ml Balance -480 ml -910 ml 40 ml Physical Exam General: Alert, Oriented X3, Cooperative, mild distress Abdomen: Normal bowel sounds, Soft, No tenderness, No hepatosplenomegaly, No masses Extremities: Other (left leg shortened, externally rotated) Skin: No rashes, No breakdown, No significant lesion Assessment and Plan Assessmemt and Plan Problems Medical Problems: (1) Left leg pain Status: Acute (2) Trauma left hip Status: Acute Comment Review of Relevant I have reviewed the following items edd (where applicable) has been applied. Medications: Current Medications Medications (Trade) Dose Ordered Sig/Jemal Route PRN Reason Start Time Stop Time Status Last Admin Dose Admin Magnesium Citrate (Citroma) 296 ml 1X ONCE PO 09/28/21 12:30 09/28/21 12:31 DC 09/28/21 12:16 Polyethylene Glycol (miraLAX PACKET) 17 gm Q6HRS PO 09/28/21 12:30 09/28/21 12:16 Justifications for Admission Other Justification DANIELLE RUTLEDGE MD September 28, 2021 14:36
[2021-09-28 15:00] VITALS: BP 126/79
--- NOTE | 2021-09-28 15:06 | RAD ---
EXAM: Chest, single view. HISTORY: Low-grade fever. COMPARISON: 09/24/2021 FINDINGS: A frontal view of the chest is obtained. There is increased right greater than left lower l obe interstitial infiltrate superimposed on chronic interstitial changes. There is no consolidation, pleural effusion or pneumothorax. The heart is normal in size. IMPRESSION: Suspected right greater than left lower lobe interstitial infiltrate super imposed on chr onic interstitial changes. Electronically signed by: Kimmy Escalante MD (09/28/2021 3:03 PM) [id number]
[2021-09-28 16:08] LABS: BASO # 0.1 x10^3/uL (0.0-0.2); BASO % 1 % (0-3); EOS # 0.1 x10^3/uL (0.0-0.7); EOS % 1 % (0-3); HEMATOCRIT 37.1 % (39.0-53.0); HEMOGLOBIN 12.5 g/dL (13.0-17.5); LYMPH # 0.7 x10^3/uL (1.0-4.8); LYMPH % 5 % (24-48); MEAN CORPUSCULAR HEMOGLOBIN 36 pg (25-35); MEAN CORPUSCULAR HGB CONC 34 g/dL (31-37); MEAN CORPUSCULAR VOLUME 107 fL (79-100); MONO # 1.9 x10^3/uL (0.0-1.1); MONO % 13 % (0-9); NEUT % 81 % (31-73); PLATELET COUNT 197 x10^3/uL (140-400); RED BLOOD COUNT 3.45 x10^6/uL (4.30-5.70); RED CELL DISTRIBUTION WIDTH 15.2 % (11.5-14.5); WHITE BLOOD COUNT 14.8 x10^3/uL (4.0-11.0)
[2021-09-28 16:17] LABS: CALCIUM 7.9 mg/dL (8.5-10.1); CREATININE 0.8 mg/dL (0.7-1.3); GFR 100.4; MAGNESIUM 2.1 mg/dL (1.8-2.4); POTASSIUM 4.1 mmol/L (3.5-5.1)
[2021-09-28] MEDS: cefTRIAXone IV Push 1 GM VIAL. IVP SCH (18:35)
[2021-09-28] MEDS: AZITHROMYCIN 500 MG in IV NORMAL SALINE 250ML 250 ML IV SCH (18:36)
[2021-09-28 18:51] LABS: % BANDS 2 % (0-9); % BASOS 1 % (0-3); % LYMPHS 9 % (24-48); % MONOS 11 % (0-10); % SEGS 77 % (35-66); PLT ESTIMATE ADEQUATE (ADEQUATE)
[2021-09-28 19:00] VITALS: BP 131/84
[2021-09-28 23:00] VITALS: BP 121/77
[2021-09-29 03:00] VITALS: BP 134/82
[2021-09-29] MEDS: LISINOPRIL 20 MG TABLET PO SCH (08:48)
[2021-09-29] MEDS: ALLOPURINOL 300 MG TABLET. PO SCH (08:48)
[2021-09-29] MEDS: METOPROLOL SUCC 24HR ER 100 MG TAB.ER.24H. PO SCH (08:48)
[2021-09-29] MEDS: oxyCODONE/APAP 5/325 1 TAB TABLET PO PRN ×2 (08:49→21:13)
[2021-09-29] MEDS: ENOXAPARIN 40 MG/0.4 ML SYRINGE. SQ SCH (08:49)
[2021-09-29] MEDS: HYDROXYUREA 500 MG CAPSULE PO SCH (09:05)
[2021-09-29 10:42] LABS: BASO # 0.1 x10^3/uL (0.0-0.2); BASO % 0 % (0-3); EOS # 0.2 x10^3/uL (0.0-0.7); EOS % 1 % (0-3); HEMATOCRIT 36.2 % (39.0-53.0); HEMOGLOBIN 12.2 g/dL (13.0-17.5); LYMPH # 0.8 x10^3/uL (1.0-4.8); LYMPH % 5 % (24-48); MEAN CORPUSCULAR HEMOGLOBIN 36 pg (25-35); MEAN CORPUSCULAR HGB CONC 34 g/dL (31-37); MEAN CORPUSCULAR VOLUME 106 fL (79-100); MONO # 2.2 x10^3/uL (0.0-1.1); MONO % 15 % (0-9); NEUT # 11.5 x10^3/uL (1.8-7.7); NEUT % 78 % (31-73); PLATELET COUNT 209 x10^3/uL (140-400); RED CELL DISTRIBUTION WIDTH 14.7 % (11.5-14.5); WHITE BLOOD COUNT 14.7 x10^3/uL (4.0-11.0)
[2021-09-29 11:00] VITALS: BP 105/68
[2021-09-29 11:00] LABS: CALCIUM 8.2 mg/dL (8.5-10.1); CREATININE 0.8 mg/dL (0.7-1.3); GFR 100.4; MAGNESIUM 2.1 mg/dL (1.8-2.4); POTASSIUM 4.1 mmol/L (3.5-5.1)
--- NOTE | 2021-09-29 12:47 | PDOC ---
[facility] PROGRESS NOTE Date of Service DOS: DATE: 09/29/21 TIME: 12:46 Chief Complaint Chief Complaint Right lower lobe pneumonia, possible gram-negative organisms Fall at work with hip fracture Leukocytosis Polycythemia vera Hypertension Gout History of Present Illness History of Present Illness 09/29/2021 No fever overnight. Patient seen examined bedside. Continue with empiric IV antibiotics to cover for pneumonia. Pain is well controlled. Will have PT OT reevaluate for home disposition 09/28/2021 No acute events overnight. Patient seen examined bedside. Developed low-grade fever this morning of 99.7. It has been persistent since last night. Saturating well on room air. Will work-up for postoperative wound infection and may be pneumonia. Will obtain CBC and BMP and chest x-ray. . 09/27/2021 No acute events overnight. Patient seen examined bedside. Pain is moderately well controlled. Not moving around too well. Still need assistance. PT OT evaluation ongoing. Patient's chart, labs, images were reviewed and discussed with RN 09/26/2021 No acute events overnight. Patient seen examined bedside. Complaining of 3 out of 10 pain while sitting in bed. Tolerating diet. Pending PT OT evaluation. Patient's chart, labs, images were reviewed and discussed with RN 09/25/2021 Patient seen and examined Discussed with RN Chart reviewed His left leg is externally rotated and shorter He is probably going to surgery later today Vitals/I&O Vitals/I&O: Vital Signs Date Time Temp Pulse Resp B/P (MAP) Pulse Ox O2 Delivery O2 Flow Rate FiO2 09/29/21 11:00 98.1 83 18 105/68 (80) 95 Room Air 98.1 09/28/21 20:00 5.0 I & O 09/28/21 09/28/21 09/29/21 15:00 23:00 07:00 Intake Total 900 ml 400 ml 250 ml Output Total 400 ml 1000 ml Balance 900 ml 0 ml -750 ml Physical Exam General: Alert, Oriented X3, Cooperative, mild distress Abdomen: Normal bowel sounds, Soft, No tenderness, No hepatosplenomegaly, No masses Extremities: Other (left leg shortened, externally rotated) Skin: No rashes, No breakdown, No significant lesion Labs Labs: Laboratory Tests Test 09/28/21 15:56 09/29/21 10:35 White Blood Count 14.8 x10^3/uL (4.0-11.0) 14.7 x10^3/uL (4.0-11.0) Red Blood Count 3.45 x10^6/uL (4.30-5.70) 3.40 x10^6/uL (4.30-5.70) Hemoglobin 12.5 g/dL (13.0-17.5) 12.2 g/dL (13.0-17.5) Hematocrit 37.1 % (39.0-53.0) 36.2 % (39.0-53.0) Mean Corpuscular Volume 107 fL (79-100) 106 fL (79-100) Mean Corpuscular Hemoglobin 36 pg (25-35) 36 pg (25-35) Mean Corpuscular Hemoglobin Concent 34 g/dL (31-37) 34 g/dL (31-37) Red Cell Distribution Width 15.2 % (11.5-14.5) 14.7 % (11.5-14.5) Platelet Count 197 x10^3/uL (140-400) 209 x10^3/uL (140-400) Neutrophils (%) (Auto) 81 % (31-73) 78 % (31-73) Lymphocytes (%) (Auto) 5 % (24-48) 5 % (24-48) Monocytes (%) (Auto) 13 % (0-9) 15 % (0-9) Eosinophils (%) (Auto) 1 % (0-3) 1 % (0-3) Basophils (%) (Auto) 1 % (0-3) 0 % (0-3) Neutrophils # (Auto) 12.0 x10^3/uL (1.8-7.7) 11.5 x10^3/uL (1.8-7.7) Lymphocytes # (Auto) 0.7 x10^3/uL (1.0-4.8) 0.8 x10^3/uL (1.0-4.8) Monocytes # (Auto) 1.9 x10^3/uL (0.0-1.1) 2.2 x10^3/uL (0.0-1.1) Eosinophils # (Auto) 0.1 x10^3/uL (0.0-0.7) 0.2 x10^3/uL (0.0-0.7) Basophils # (Auto) 0.1 x10^3/uL (0.0-0.2) 0.1 x10^3/uL (0.0-0.2) Segmented Neutrophils % 77 % (35-66) Band Neutrophils % 2 % (0-9) Lymphocytes % 9 % (24-48) Monocytes % 11 % (0-10) Basophils % 1 % (0-3) Platelet Estimate Adequate (ADEQUATE) Sodium Level 137 mmol/L (136-145) 136 mmol/L (136-145) Potassium Level 4.1 mmol/L (3.5-5.1) 4.1 mmol/L (3.5-5.1) Chloride Level 103 mmol/L (98-107) 103 mmol/L (98-107) Carbon Dioxide Level 25 mmol/L (21-32) 26 mmol/L (21-32) Anion Gap 9 (6-14) 7 (6-14) Blood Urea Nitrogen 12 mg/dL (8-26) 12 mg/dL (8-26) Creatinine 0.8 mg/dL (0.7-1.3) 0.8 mg/dL (0.7-1.3) Estimated GFR (Cockcroft-Gault) 100.4 100.4 Glucose Level 100 mg/dL (70-99) 106 mg/dL (70-99) Calcium Level 7.9 mg/dL (8.5-10.1) 8.2 mg/dL (8.5-10.1) Magnesium Level 2.1 mg/dL (1.8-2.4) 2.1 mg/dL (1.8-2.4) Assessment and Plan Assessmemt and Plan Problems Medical Problems: (1) Left leg pain Status: Acute (2) Trauma left hip Status: Acute Comment Review of Relevant I have reviewed the following items edd (where applicable) has been applied. Medications: Current Medications Medications (Trade) Dose Ordered Sig/Jemal Route PRN Reason Start Time Stop Time Status Last Admin Dose Admin Ceftriaxone Sodium (Rocephin) 1 gm Q24H IVP 09/28/21 18:00 09/28/21 18:35 Azithromycin 500 mg/Sodium Chloride 250 ml @ 250 mls/hr Q24H IV 09/28/21 18:00 09/28/21 18:36 Justifications for Admission Other Justification DANIELLE RUTLEDGE MD September 29, 2021 12:47
[2021-09-29 15:00] VITALS: BP 102/64
[2021-09-29] MEDS: cefTRIAXone IV Push 1 GM VIAL. IVP SCH (16:50)
[2021-09-29] MEDS: AZITHROMYCIN 500 MG in IV NORMAL SALINE 250ML 250 ML IV SCH (16:51)
[2021-09-29 19:00] VITALS: BP 113/78
[2021-09-29 23:00] VITALS: BP 108/69
[2021-09-30 03:00] VITALS: BP 122/84
[2021-09-30 07:00] VITALS: BP 119/69
[2021-09-30] MEDS: METOPROLOL SUCC 24HR ER 100 MG TAB.ER.24H. PO SCH (10:13)
[2021-09-30] MEDS: ALLOPURINOL 300 MG TABLET. PO SCH (10:13)
[2021-09-30] MEDS: oxyCODONE/APAP 5/325 1 TAB TABLET PO PRN (10:13)
[2021-09-30] MEDS: HYDROXYUREA 500 MG CAPSULE PO SCH (10:14)
[2021-09-30] MEDS: LISINOPRIL 20 MG TABLET PO SCH (10:15)
[2021-09-30] MEDS: ENOXAPARIN 40 MG/0.4 ML SYRINGE. SQ SCH (10:15)
[2021-09-30 11:00] VITALS: BP 107/67
--- NOTE | 2021-09-30 11:45 | PDOC ---
[facility] PROGRESS NOTE Date of Service DOS: DATE: 09/30/21 TIME: 11:44 Chief Complaint Chief Complaint Right lower lobe pneumonia, possible gram-negative organisms COVID-19 infection Fall at work with hip fracture Leukocytosis Polycythemia vera Hypertension Gout History of Present Illness History of Present Illness 09/30/2021 No acute events overnight. Patient seen examined bedside. Afebrile and vital signs stable. Not requiring any oxygen. Incision is clear dry and intact. We will have PT OT reevaluate tomorrow and see if patient still needs fdc facility. Patient's chart, labs, images were reviewed and discussed with RN 09/29/2021 No fever overnight. Patient seen examined bedside. Continue with empiric IV antibiotics to cover for pneumonia. Pain is well controlled. Will have PT OT reevaluate for home disposition 09/28/2021 No acute events overnight. Patient seen examined bedside. Developed low-grade fever this morning of 99.7. It has been persistent since last night. Saturating well on room air. Will work-up for postoperative wound infection and may be pneumonia. Will obtain CBC and BMP and chest x-ray. . 09/27/2021 No acute events overnight. Patient seen examined bedside. Pain is moderately well controlled. Not moving around too well. Still need assistance. PT OT evaluation ongoing. Patient's chart, labs, images were reviewed and discussed with RN 09/26/2021 No acute events overnight. Patient seen examined bedside. Complaining of 3 out of 10 pain while sitting in bed. Tolerating diet. Pending PT OT evaluation. Patient's chart, labs, images were reviewed and discussed with RN 09/25/2021 Patient seen and examined Discussed with RN Chart reviewed His left leg is externally rotated and shorter He is probably going to surgery later today Vitals/I&O Vitals/I&O: Vital Signs Date Time Temp Pulse Resp B/P (MAP) Pulse Ox O2 Delivery O2 Flow Rate FiO2 09/30/21 10:15 79 119/69 09/30/21 10:13 97 Room Air 09/30/21 08:00 5.0 09/30/21 07:00 98.7 18 98.7 I & O 09/29/21 09/29/21 09/30/21 15:00 23:00 07:00 Intake Total 450 ml Balance 450 ml Physical Exam General: Alert, Oriented X3, Cooperative, mild distress Abdomen: Normal bowel sounds, Soft, No tenderness, No hepatosplenomegaly, No masses Extremities: Other (left leg shortened, externally rotated) Skin: No rashes, No breakdown, No significant lesion Assessment and Plan Assessmemt and Plan Problems Medical Problems: (1) Left leg pain Status: Acute (2) Trauma left hip Status: Acute Comment Review of Relevant I have reviewed the following items edd (where applicable) has been applied. Justifications for Admission Other Justification DANIELLE RUTLEDGE MD September 30, 2021 11:45
[2021-09-30 15:00] VITALS: BP 114/67
[2021-09-30] MEDS: AZITHROMYCIN 500 MG in IV NORMAL SALINE 250ML 250 ML IV SCH (17:34)
[2021-09-30] MEDS: cefTRIAXone IV Push 1 GM VIAL. IVP SCH (17:34)
[2021-09-30 19:00] VITALS: BP 127/76
[2021-09-30 23:00] VITALS: BP 117/68
[2021-10-01 03:00] VITALS: BP 120/64
[2021-10-01 03:50] LABS: BASO # 0.1 x10^3/uL (0.0-0.2); BASO % 1 % (0-3); EOS # 0.2 x10^3/uL (0.0-0.7); EOS % 2 % (0-3); HEMATOCRIT 35.1 % (39.0-53.0); HEMOGLOBIN 11.6 g/dL (13.0-17.5); LYMPH % 8 % (24-48); MEAN CORPUSCULAR HEMOGLOBIN 36 pg (25-35); MEAN CORPUSCULAR HGB CONC 33 g/dL (31-37); MEAN CORPUSCULAR VOLUME 108 fL (79-100); MONO # 2.1 x10^3/uL (0.0-1.1); MONO % 16 % (0-9); NEUT # 9.6 x10^3/uL (1.8-7.7); NEUT % 73 % (31-73); PLATELET COUNT 203 x10^3/uL (140-400); RED BLOOD COUNT 3.26 x10^6/uL (4.30-5.70); RED CELL DISTRIBUTION WIDTH 15.1 % (11.5-14.5); WHITE BLOOD COUNT 13.1 x10^3/uL (4.0-11.0)
[2021-10-01] MEDS: oxyCODONE/APAP 5/325 1 TAB TABLET PO PRN (04:03)
[2021-10-01 04:39] LABS: CALCIUM 8.1 mg/dL (8.5-10.1); CREATININE 0.8 mg/dL (0.7-1.3); GFR 100.4; PHOSPHORUS 3.4 mg/dL (2.6-4.7); POTASSIUM 4.1 mmol/L (3.5-5.1)
[2021-10-01 07:00] VITALS: BP 123/73
[2021-10-01] MEDS: LISINOPRIL 20 MG TABLET PO SCH (09:00)
[2021-10-01] MEDS: ALLOPURINOL 300 MG TABLET. PO SCH (09:05)
[2021-10-01] MEDS: ENOXAPARIN 40 MG/0.4 ML SYRINGE. SQ SCH (09:05)
[2021-10-01] MEDS: METOPROLOL SUCC 24HR ER 100 MG TAB.ER.24H. PO SCH (09:05)
[2021-10-01] MEDS: HYDROXYUREA 500 MG CAPSULE PO SCH (09:09)
[2021-10-01] MEDS ORDERED: SENNOSIDES/DOCUSATE 8.6/50MG TABLET. PO PRN (10:00)
--- NOTE | 2021-10-01 10:03 | PDOC ---
[facility] PROGRESS NOTE Date of Service DOS: DATE: 10/01/21 TIME: 10:01 Chief Complaint Chief Complaint Right lower lobe pneumonia, possible gram-negative organisms COVID-19 infection Fall at work with hip fracture Leukocytosis Polycythemia vera Hypertension Gout History of Present Illness History of Present Illness 10/01 Patient evaluated examined at bedside. No overnight events. Afebrile. Re spiratory status improved continue antibiotics for now. On room air. Looks like most recent therapy note recommending prison placement. Can switch antibiotics to orals on discharge. Social issues noted. Discussed with bedside RN. Will discuss with social work. 09/30/2021 No acute events overnight. Patient seen examined bedside. Afebrile and vital signs stable. Not requiring any oxygen. Incision is clear dry and intact. We will have PT OT reevaluate tomorrow and see if patient still needs prison facility. Patient's chart, labs, images were reviewed and discussed with RN 09/29/2021 No fever overnight. Patient seen examined bedside. Continue with empiric IV antibiotics to cover for pneumonia. Pain is well controlled. Will have PT OT reevaluate for home disposition 09/28/2021 No acute events overnight. Patient seen examined bedside. Developed low-grade fever this morning of 99.7. It has been persistent since last night. Saturating well on room air. Will work-up for postoperative wound infection and may be pneumonia. Will obtain CBC and BMP and chest x-ray. . 09/27/2021 No acute events overnight. Patient seen examined bedside. Pain is moderately well controlled. Not moving around too well. Still need assistance. PT OT evaluation ongoing. Patient's chart, labs, images were reviewed and discussed with RN 09/26/2021 No acute events overnight. Patient seen examined bedside. Complaining of 3 out of 10 pain while sitting in bed. Tolerating diet. Pending PT OT evaluation. P atient's chart, labs, images were reviewed and discussed with RN 09/25/2021 Patient seen and examined Discussed with RN Chart reviewed His left leg is externally rotated and shorter He is probably going to surgery later today Vitals/I&O Vitals/I&O: Vital Signs Date Time Temp Pulse Resp B/P (MAP) Pulse Ox O2 Delivery O2 Flow Rate FiO2 10/01/21 09:05 73 123/73 10/01/21 07:00 98.6 16 95 Room Air 98.6 09/30/21 20:00 5.0 I & O 09/30/21 09/30/21 10/01/21 15:00 23:00 07:00 Intake Total 350 ml 650 ml Output Total 1975 ml 600 ml 500 ml Balance -1625 ml 50 ml -500 ml Physical Exam General: Alert, Oriented X3, Cooperative, No acute distress Heart: Regular rate Lungs: Clear Abdomen: Normal bowel sounds, Soft, No tenderness, No hepatosplenomegaly, No masses Extremities: Other (left leg shortened, externally rotated) Skin: No rashes, No breakdown, No significant lesion Labs Labs: Laboratory Tests Test 10/01/21 03:35 White Blood Count 13.1 x10^3/uL (4.0-11.0) Red Blood Count 3.26 x10^6/uL (4.30-5.70) Hemoglobin 11.6 g/dL (13.0-17.5) Hematocrit 35.1 % (39.0-53.0) Mean Corpuscular Volume 108 fL (79-100) Mean Corpuscular Hemoglobin 36 pg (25-35) Mean Corpuscular Hemoglobin Concent 33 g/dL (31-37) Red Cell Distribution Width 15.1 % (11.5-14.5) Platelet Count 203 x10^3/uL (140-400) Neutrophils (%) (Auto) 73 % (31-73) Lymphocytes (%) (Auto) 8 % (24-48) Monocytes (%) (Auto) 16 % (0-9) Eosinophils (%) (Auto) 2 % (0-3) Basophils (%) (Auto) 1 % (0-3) Neutrophils # (Auto) 9.6 x10^3/uL (1.8-7.7) Lymphocytes # (Auto) 1.0 x10^3/uL (1.0-4.8) Monocytes # (Auto) 2.1 x10^3/uL (0.0-1.1) Eosinophils # (Auto) 0.2 x10^3/uL (0.0-0.7) Basophils # (Auto) 0.1 x10^3/uL (0.0-0.2) Sodium Level 138 mmol/L (136-145) Potassium Level 4.1 mmol/L (3.5-5.1) Chloride Level 106 mmol/L (98-107) Carbon Dioxide Level 24 mmol/L (21-32) Anion Gap 8 (6-14) Blood Urea Nitrogen 12 mg/dL (8-26) Creatinine 0.8 mg/dL (0.7-1.3) Estimated GFR (Cockcroft-Gault) 100.4 Glucose Level 99 mg/dL (70-99) Calcium Level 8.1 mg/dL (8.5-10.1) Phosphorus Level 3.4 mg/dL (2.6-4.7) Magnesium Level 2.0 mg/dL (1.8-2.4) Assessment and Plan Assessmemt and Plan Problems Medical Problems: (1) Left leg pain Status: Acute (2) Trauma left hip Status: Acute Comment Review of Relevant I have reviewed the following items edd (where applicable) has been applied. Justifications for Admission Other Justification WHITLEY CORONA MD October 01, 2021 10:03
[2021-10-01 11:00] VITALS: BP 119/78
[2021-10-01 15:00] VITALS: BP 110/57
[2021-10-01] MEDS: cefTRIAXone IV Push 1 GM VIAL. IVP SCH (17:20)
[2021-10-01] MEDS: AZITHROMYCIN 500 MG in IV NORMAL SALINE 250ML 250 ML IV SCH (17:21)
[2021-10-01 19:00] VITALS: BP 119/64
[2021-10-02 07:00] VITALS: BP 132/80
[2021-10-02] MEDS: ALLOPURINOL 300 MG TABLET. PO SCH (08:02)
[2021-10-02] MEDS: LISINOPRIL 20 MG TABLET PO SCH (08:03)
[2021-10-02] MEDS: METOPROLOL SUCC 24HR ER 100 MG TAB.ER.24H. PO SCH (08:03)
[2021-10-02] MEDS: ENOXAPARIN 40 MG/0.4 ML SYRINGE. SQ SCH (08:03)
[2021-10-02] MEDS: HYDROXYUREA 500 MG CAPSULE PO SCH (08:04)
[2021-10-02] MEDS: oxyCODONE/APAP 5/325 1 TAB TABLET PO PRN ×2 (09:10→23:53)
[2021-10-02] MEDS ORDERED: METO-247 PO (10:01)
--- NOTE | 2021-10-02 10:02 | SNU/HH DC ---
DISCHARGE WITH HOME HEALTH DISCHARGE INFORMATION: Discharge Date: October 02, 2021 Final Diagnosis: Problems Medical Problems: (1) Left leg pain Status: Acute (2) Trauma left hip Status: Acute Condition on Discharge: Stable CODE STATUS: Code Status: Full HOME HEALTH: Face to Face: I certify this patient is under my care and that I, or a nurse practitioner or physician's assistant boys track coach working with me, had a face to face encounter that meets the physician face to face encounter requirements with this patient on []. RN For Eval/Treatment: Yes Physical Therapy For: Evalulation/Treatment Occupational Therapy For: Evaluation/Treatment Pt Meets Homebound Status: Poor coordination w/ amb., Unsteady balance w/ amb,, Extreme weakness w/ amb. POST DISCHARGE ORDERS: Activity Instructions for Disc: Avoid exertion Weight Bearing Status after Di: As tolerated, Touch down weight bearing DIET AFTER DISCHARGE: Regular CHECKS AFTER DISCHARGE: Checks after discharge: Check blood press - daily FOLLOW-UP: Follow up with: PCP within 2 weeks of discharge Follow Up With: Orthopedic surgery within 2 weeks for postoperative wound check TREATMENT/EQUIPMENT ORDERS: Adaptive Equipment Issued: Walker CERTIFICATION STATEMENT: Certification Statement: Certification Statement: Based on the above finding, I certify that this patient is confined to the home and needs intermittent jail care, physical therapy and/or speech therapy, or continues to need occupational therapy.~ This patient is under my care, and I have initiated the establishment of the plan of care.~ This patient will be followed by myself or a community physician who will periodically review the plan of care. Home Meds Active Scripts Metoprolol Succinate (METOPROLOL SUCCINATE ( XL )) 100 Mg Tab.er.24h, 100 MG PO DAILY for htn for 60 Days, #60 TAB.SR Prov:WHITLEY CORONA MD 10/02/21 Sennosides/Docusate Sodium (Senna-Docusate Sodium Tablet) 1 Each Tablet, 2 TAB PO BID PRN for CONSTIPATION for 5 Days, #20 TAB 0 Refills Prov:DANIELLE RUTLEDGE MD 09/27/21 Aspirin (ASPIRIN) 325 Mg Tablet, 1 TAB PO BID PRN for dvt prophylaxis for 30 Days, #60 TAB 5 Refills Prov:DANIELLE RUTLEDGE MD 09/27/21 Oxycodone/Apap 5-325 (PERCOCET 5-325 MG TABLET ) 1 Each Tablet, 1 TAB PO PRN Q4-6HRS PRN for PAIN for 3 Days, #18 TAB Prov:ADNIELLE RUTLEDGE MD 09/27/21 Reported Medications Allopurinol (ALLOPURINOL) 300 Mg Tablet, 300 MG PO DAILY for gout, TAB 05/08/18 Hydroxyurea (HYDROXYUREA) 500 Mg Capsule, 500 MG PO DAILY for blood cell count, CAP 05/08/18 Metoprolol Tartrate (METOPROLOL TARTRATE) 100 Mg Tablet, 100 MG PO BID for FOR HYPERTENSION, #60 TAB 0 Refills 05/08/18 Benazepril Hcl (BENAZEPRIL HCL) 20 Mg Tablet, 20 MG PO DAILY for bp, TAB 05/08/18 Discontinued Reported Medications Aspirin (ADULT LOW DOSE ASPIRIN EC) 81 Mg Tablet.dr, 1 TAB PO DAILY for ....., TAB 09/25/21 WHITLEY CORONA MD October 02, 2021 10:02
--- NOTE | 2021-10-02 10:05 | PDOC3 ---
[facility]-Dis[facility] Summary Date of Admission: Date of Admission: September 24, 2021 Date of Discharge: Date of Discharge: October 02, 2021 Admission Diagnosis: Admitting Diagnosis: l hip fracture Consults: Consults: Ortho Hospital Course: Hospital Course: Chief Complaint Right lower lobe pneumonia, possible gram-negative organisms COVID-19 infection Fall at work with hip fracture Leukocytosis Polycythemia vera Hypertension Gout History of Present Illness History of Present Illness 10/02 Evaluated examined at bedside. Resting in bed doing well no complaints to me. Has finished antibiotic course at this point. Okay to discharge home with home health today. greater than 30 minutes spent on discharge. 22 minutes advance care planning. 10/01 Patient evaluated examined at bedside. No overnight events. Afebrile. Respiratory status improved continue antibiotics for now. On room air. Looks like most recent therapy note recommending correction placement. Can switch antibiotics to orals on discharge. Social issues noted. Discussed with bedside RN. Will discuss with social work. 09/30/2021 No acute events overnight. Patient seen examined bedside. Afebrile and vital signs stable. Not requiring any oxygen. Incision is clear dry and intact. We will have PT OT reevaluate tomorrow and see if patient still needs correction facility. Patient's chart, labs, images were reviewed and discussed with RN 09/29/2021 No fever overnight. Patient seen examined bedside. Continue with empiric IV antibiotics to cover for pneumonia. Pain is well controlled. Will have PT OT reevaluate for home disposition 09/28/2021 No acute events overnight. Patient seen examined bedside. Developed low-grade fever this morning of 99.7. It has been persistent since last night. Saturating well on room air. Will work-up for postoperative wound infection and may be pneumonia. Will obtain CBC and BMP and chest x-ray. . 09/27/2021 No acute events overnight. Patient seen examined bedside. Pain is moderately well controlled. Not moving around too well. Still need assistance. PT OT evaluation ongoing. Patient's chart, labs, images were reviewed and discussed with RN 09/26/2021 No acute events overnight. Patient seen examined bedside. Complaining of 3 out of 10 pain while sitting in bed. Tolerating diet. Pending PT OT evaluation. Patient's chart, labs, images were reviewed and discussed with RN 09/25/2021 Patient seen and examined Discussed with RN Chart reviewed His left leg is externally rotated and shorter He is probably going to surgery later today Activity: Activity: Resume previous activity Medications: Home Meds Active Scripts Metoprolol Succinate (METOPROLOL SUCCINATE ( XL )) 100 Mg Tab.er.24h, 100 MG PO DAILY for htn for 60 Days, #60 TAB.SR Prov:WHITLEY CORONA MD 10/02/21 Sennosides/Docusate Sodium (Senna-Docusate Sodium Tablet) 1 Each Tablet, 2 TAB P O BID PRN for CONSTIPATION for 5 Days, #20 TAB 0 Refills Prov:DANIELLE RUTLEDGE MD 09/27/21 Aspirin (ASPIRIN) 325 Mg Tablet, 1 TAB PO BID PRN for dvt prophylaxis for 30 Days, #60 TAB 5 Refills Prov:DANIELLE RUTLEDGE MD 09/27/21 Oxycodone/Apap 5-325 (PERCOCET 5-325 MG TABLET ) 1 Each Tablet, 1 TAB PO PRN Q4-6HRS PRN for PAIN for 3 Days, #18 TAB Prov:DANIELLE RUTLEDGE MD 09/27/21 Reported Medications Allopurinol (ALLOPURINOL) 300 Mg Tablet, 300 MG PO DAILY for gout, TAB 05/08/18 Hydroxyurea (HYDROXYUREA) 500 Mg Capsule, 500 MG PO DAILY for blood cell count, CAP 05/08/18 Metoprolol Tartrate (METOPROLOL TARTRATE) 100 Mg Tablet, 100 MG PO BID for FOR HYPERTENSION, #60 TAB 0 Refills 05/08/18 Benazepril Hcl (BENAZEPRIL HCL) 20 Mg Tablet, 20 MG PO DAILY for bp, TAB 05/08/18 Discontinued Reported Medications Aspirin (ADULT LOW DOSE ASPIRIN EC) 81 Mg Tablet.dr, 1 TAB PO DAILY for ....., TAB 09/25/21 Scheduled Allopurinol (Allopurinol), 300 MG PO DAILY, (Reported) Benazepril Hcl (Benazepril Hcl), 20 MG PO DAILY, (Reported) Hydroxyurea (Hydroxyurea), 500 MG PO DAILY, (Reported) Metoprolol Succinate (Metoprolol Succinate ( Xl )), 100 MG PO DAILY Metoprolol Tartrate (Metoprolol Tartrate), 100 MG PO BID, (Reported) Scheduled PRN Aspirin (Aspirin), 1 TAB PO BID PRN for dvt prophylaxis Oxycodone/Apap 5-325 (Percocet 5-325 Mg Tablet ), 1 TAB PO PRN Q4-6HRS PRN for PAIN Sennosides/Docusate Sodium (Senna-Docusate Sodium Tablet), 2 TAB PO BID PRN for CONSTIPATION Discontinued Medications Aspirin (Adult Low Dose Aspirin Ec), 1 TAB PO DAILY, (Reported) Justicifation of Admission Dx: Justifications for Admission: Justification of Admission Dx: Yes (hip fracture) WHITLEY CORONA MD October 02, 2021 10:05
[2021-10-02 15:00] VITALS: BP 105/71
[2021-10-02] MEDS: AZITHROMYCIN 500 MG in IV NORMAL SALINE 250ML 250 ML IV SCH (17:21)
[2021-10-02] MEDS: cefTRIAXone IV Push 1 GM VIAL. IVP SCH (17:21)
[2021-10-02 19:30] VITALS: BP 125/80
[2021-10-02 23:50] VITALS: BP 140/84
[2021-10-03 03:08] VITALS: BP 118/83
[2021-10-03 07:00] VITALS: BP 128/82
--- NOTE | 2021-10-03 07:55 | PDOC ---
[facility] PROGRESS NOTE Date of Service DOS: DATE: 10/03/21 TIME: 07:55 Chief Complaint Chief Complaint Right lower lobe pneumonia, possible gram-negative organisms COVID-19 infection Fall at work with hip fracture Leukocytosis Polycythemia vera Hypertension Gout History of Present Illness History of Present Illness 10/03/2021 Patient seen and examined Discussed with RN Chart reviewed He could not discharge yesterday due to awaiting DME I wrote prescription for a walker and a toilet riser We will go ahead and redischarge 10/01 Patient evaluated examined at bedside. No overnight events. Afebrile. Respiratory status improved continue antibiotics for now. On room air. Looks like most recent therapy note recommending intermediate placement. Can switch antibiotics to orals on discharge. Social issues noted. Discussed with bedside RN. Will discuss with social work. 09/30/2021 No acute events overnight. Patient seen examined bedside. Afebrile and vital signs stable. Not requiring any oxygen. Incision is clear dry and intact. We will have PT OT reevaluate tomorrow and see if patient still needs intermediate facility. Patient's chart, labs, images were reviewed and discussed with RN 09/29/2021 No fever overnight. Patient seen examined bedside. Continue with empiric IV antibiotics to cover for pneumonia. Pain is well controlled. Will have PT OT reevaluate for home disposition 09/28/2021 No acute events overnight. Patient seen examined bedside. Developed low-grade fever this morning of 99.7. It has been persistent since last night. Saturating well on room air. Will work-up for postoperative wound infection and may be pneumonia. Will obtain CBC and BMP and chest x-ray. . 09/27/2021 No acute events overnight. Patient seen examined bedside. Pain is moderately well controlled. Not moving around too well. Still need assistance. PT OT evaluation ongoing. Patient's chart, labs, images were reviewed and discussed with RN 09/26/2021 No acute events overnight. Patient seen examined bedside. Complaining of 3 out of 10 pain while sitting in bed. Tolerating diet. Pending PT OT evaluation. Patient's chart, labs, images were reviewed and discussed with RN 09/25/2021 Patient seen and examined Discussed with RN Chart reviewed His left leg is externally rotated and shorter He is probably going to surgery later today Vitals/I&O Vitals/I&O: Vital Signs Date Time Temp Pulse Resp B/P (MAP) Pulse Ox O2 Delivery O2 Flow Rate FiO2 10/03/21 03:08 98.2 73 18 118/83 (95) 95 Room Air 98.2 I & O 10/02/21 10/02/21 10/03/21 14:59 22:59 06:59 Intake Total 450 ml 600 ml 780 ml Output Total 1400 ml 450 ml 750 ml Balance -950 ml 150 ml 30 ml Physical Exam General: Alert, Oriented X3, Cooperative, No acute distress Heart: Regular rate Lungs: Clear Abdomen: Normal bowel sounds, Soft, No tenderness, No hepatosplenomegaly, No masses Extremities: Other (left leg shortened, externally rotated) Skin: No rashes, No breakdown, No significant lesion Assessment and Plan Assessmemt and Plan Problems Medical Problems: (1) Left leg pain Status: Acute (2) Trauma left hip Status: Acute Comment Review of Relevant I have reviewed the following items edd (where applicable) has been applied. Justifications for Admission Other Justification FLORENCE RODRIGUEZ III DO October 03, 2021 07:55
[2021-10-03] MEDS: LISINOPRIL 20 MG TABLET PO SCH (08:46)
[2021-10-03] MEDS: HYDROXYUREA 500 MG CAPSULE PO SCH (08:47)
[2021-10-03] MEDS: ALLOPURINOL 300 MG TABLET. PO SCH (08:47)
[2021-10-03] MEDS: METOPROLOL SUCC 24HR ER 100 MG TAB.ER.24H. PO SCH (08:47)
[2021-10-03] MEDS: ENOXAPARIN 40 MG/0.4 ML SYRINGE. SQ SCH (08:48)
[2021-10-03 11:00] VITALS: BP 109/77
[2021-10-03 15:00] VITALS: BP 118/79
[2021-10-03] MEDS: cefTRIAXone IV Push 1 GM VIAL. IVP SCH (18:00)
[2021-10-03] MEDS: AZITHROMYCIN 500 MG in IV NORMAL SALINE 250ML 250 ML IV SCH (18:00)
[2021-10-03 19:00] VITALS: BP 111/68
[2021-10-03 23:05] VITALS: BP 119/73
[2021-10-04 03:05] VITALS: BP 122/72
[2021-10-04 07:00] VITALS: BP 128/79
[2021-10-04] MEDS: METOPROLOL SUCC 24HR ER 100 MG TAB.ER.24H. PO SCH (09:27)
[2021-10-04] MEDS: ALLOPURINOL 300 MG TABLET. PO SCH (09:27)
[2021-10-04] MEDS: LISINOPRIL 20 MG TABLET PO SCH (09:28)
[2021-10-04] MEDS: ENOXAPARIN 40 MG/0.4 ML SYRINGE. SQ SCH (09:29)
[2021-10-04] MEDS: HYDROXYUREA 500 MG CAPSULE PO SCH (09:30)
--- NOTE | 2021-10-04 09:35 | PDOC ---
[facility] [facility] PROGRESS NOTE Date of Service DOS: DATE: 10/04/21 TIME: 09:34 Chief Complaint Chief Complaint Postop day 9 Closed reduction and intramedullary nailing left hip fracture Right lower lobe pneumonia, possible gram-negative organisms COVID-19 infection Fall at work with hip fracture Leukocytosis Polycythemia vera Hypertension Gout History of Present Illness History of Present Illness 10/04/2021 Patient seen and examined Discussed with RN Chart reviewed Discussed with case management The DME is being delivered today We hope to redischarge this afternoon 10/03/2021 Patient seen and examined Discussed with RN Chart reviewed He could not discharge yesterday due to awaiting DME I wrote prescription for a walker and a toilet riser We will go ahead and redischarge 10/01 Patient evaluated examined at bedside. No overnight events. Afebrile. Respiratory status improved continue antibiotics for now. On room air. Looks like most recent therapy note recommending senior care placement. Can switch antibiotics to orals on discharge. Social issues noted. Discussed with bedside RN. Will discuss with social work. 09/30/2021 No acute events overnight. Patient seen examined bedside. Afebrile and vital signs stable. Not requiring any oxygen. Incision is clear dry and intact. We will have PT OT reevaluate tomorrow and see if patient still needs senior care facility. Patient's chart, labs, images were reviewed and discussed with RN 09/29/2021 No fever overnight. Patient seen examined bedside. Continue with empiric IV antibiotics to cover for pneumonia. Pain is well controlled. Will have PT OT reevaluate for home disposition 09/28/2021 No acute events overnight. Patient seen examined bedside. Developed low-grade fever this morning of 99.7. It has been persistent since last night. Saturating well on room air. Will work-up for postoperative wound infection and may be pneumonia. Will obtain CBC and BMP and chest x-ray. . 09/27/2021 No acute events overnight. Patient seen examined bedside. Pain is moderately well controlled. Not moving around too well. Still need assistance. PT OT evaluation ongoing. Patient's chart, labs, images were reviewed and discussed with RN 09/26/2021 No acute events overnight. Patient seen examined bedside. Complaining of 3 out of 10 pain while sitting in bed. Tolerating diet. Pending PT OT evaluation. Patient's chart, labs, images were reviewed and discussed with RN 09/25/2021 Patient seen and examined Discussed with RN Chart reviewed His left leg is externally rotated and shorter He is probably going to surgery later today Vitals/I&O Vitals/I&O: Vital Signs Date Time Temp Pulse Resp B/P (MAP) Pulse Ox O2 Delivery O2 Flow Rate FiO2 10/04/21 09:28 96 128/79 10/04/21 07:00 98.2 18 96 Room Air 98.2 I & O 10/03/21 10/03/21 10/04/21 15:00 23:00 07:00 Intake Total 800 ml Output Total 1150 ml 1900 ml Balance -350 ml -1900 ml Physical Exam General: Alert, Oriented X3, Cooperative, No acute distress Heart: Regular rate Lungs: Clear Abdomen: Normal bowel sounds, Soft, No tenderness, No hepatosplenomegaly, No masses Extremities: Other (left leg shortened, externally rotated) Skin: No rashes, No breakdown, No significant lesion Assessment and Plan Assessmemt and Plan Problems Medical Problems: (1) Left leg pain Status: Acute (2) Trauma left hip Status: Acut Postop day 9 Closed reduction and intramedullary nailing left hip fracture Right lower lobe pneumonia, possible gram-negative organisms COVID-19 infection Fall at work with hip fracture Leukocytosis Polycythemia vera Hypertension Gout Plan Redischarge with home health later this afternoon once the DME equipment arrives Comment Review of Relevant I have reviewed the following items edd (where applicable) has been applied. Justifications for Admission Other Justification FLORENCE RODRIGUEZ III DO October 04, 2021 09:35
--- NOTE | 2021-10-04 09:37 | SNU/HH DC ---
DISCHARGE WITH HOME HEALTH DISCHARGE INFORMATION: Discharge Date: October 02, 2021 Final Diagnosis: Problems Medical Problems: (1) Left leg pain Status: Acute (2) Trauma left hip Status: Acute Condition on Discharge: Stable CODE STATUS: Code Status: Full HOME HEALTH: Face to Face: I certify this patient is under my care and that I, or a nurse practitioner or physician's funeral home assistant working with me, had a face to face encounter that meets the physician face to face encounter requirements with this patient on []. Medical Complications: Other (Postop Closed reduction and intramedullary nailing left hip fracture /recent Covid-19) RN For Eval/Treatment: Yes Physical Therapy For: Evalulation/Treatment Occupational Therapy For: Evaluation/Treatment Speech Language Pathology For: Evaluation/Treatment Home Health Aide For: Self-care [employer] ARCHITECT For: Community Resources Pt Meets Homebound Status: Poor coordination w/ amb. POST DISCHARGE ORDERS: Activity Instructions for Disc: Avoid exertion Weight Bearing Status after Di: As tolerated, Touch down weight bearing DIET AFTER DISCHARGE: Regular CHECKS AFTER DISCHARGE: Checks after discharge: Check blood press - daily FOLLOW-UP: Follow up with: PCP within 2 weeks of discharge Follow Up With: Orthopedic surgery within 2 weeks for postoperative wound check TREATMENT/EQUIPMENT ORDERS: Adaptive Equipment Issued: Walker CERTIFICATION STATEMENT: Certification Statement: Certification Statement: Based on the above finding, I certify that this patient is confined to the home and needs intermittent jail care, physical therapy and/or speech therapy, or continues to need occupational therapy.~ This patient is under my care, and I have initiated the establishment of the plan of care.~ This patient will be followed by myself or a community physician who will periodically review the plan of care. Home Meds Active Scripts Metoprolol Succinate (METOPROLOL SUCCINATE ( XL )) 100 Mg Tab.er.24h, 100 MG PO DAILY for htn for 60 Days, #60 TAB.SR Prov:WHITLEY CORONA MD 10/02/21 Sennosides/Docusate Sodium (Senna-Docusate Sodium Tablet) 1 Each Tablet, 2 TAB PO BID PRN for CONSTIPATION for 5 Days, #20 TAB 0 Refills Prov:DANIELLE RUTLEDGE MD 09/27/21 Aspirin (ASPIRIN) 325 Mg Tablet, 1 TAB PO BID PRN for dvt prophylaxis for 30 Days, #60 TAB 5 Refills Prov:DANIELLE RUTLEDGE MD 09/27/21 Oxycodone/Apap 5-325 (PERCOCET 5-325 MG TABLET ) 1 Each Tablet, 1 TAB PO PRN Q4-6HRS PRN for PAIN for 3 Days, #18 TAB Prov:DANIELLE RUTLEDGE MD 09/27/21 Reported Medications Allopurinol (ALLOPURINOL) 300 Mg Tablet, 300 MG PO DAILY for gout, TAB 05/08/18 Hydroxyurea (HYDROXYUREA) 500 Mg Capsule, 500 MG PO DAILY for blood cell count, CAP 05/08/18 Metoprolol Tartrate (METOPROLOL TARTRATE) 100 Mg Tablet, 100 MG PO BID for FOR HYPERTENSION, #60 TAB 0 Refills 05/08/18 Benazepril Hcl (BENAZEPRIL HCL) 20 Mg Tablet, 20 MG PO DAILY for bp, TAB 05/08/18 Discontinued Reported Medications Aspirin (ADULT LOW DOSE ASPIRIN EC) 81 Mg Tablet.dr, 1 TAB PO DAILY for ....., TAB 09/25/21 FLORENCE RODRIGUEZ III DO October 04, 2021 09:37
--- NOTE | 2021-10-04 09:52 | DS ---
DATE OF DISCHARGE: 10/04/2021 ADMISSION DIAGNOSIS: Fall at work (he tripped over some pellets and suffered a hip fracture. DISCHARGE DIAGNOSES: 1. Postoperative day 9 closed reduction and intramedullary nailing of left hip fracture. 2. Incidental finding of COVID-19 infection (he states he has been vaccinated 4 times). 3. Right lower lobe pneumonia, leukocytosis, polycythemia vera, hypertension and gout. CONSULTATIONS: Orthopedics. PROCEDURES: Closed reduction and intramedullary nailing of the left hip fracture. HOSPITAL COURSE: The patient is a pleasant middle-aged male who presented on 09/24 after he fell at work. He tripped over some pellets. He was complaining of left hip pain. We did some imaging that showed a left intertrochanteric displaced fracture. He was admitted. We consulted Orthopedics. He was taken for surgery the following morning. Postoperatively, he has done well, but we have been treating him for COVID-19 and pneumonia as well. Today, I saw and examined him. He is doing well and wants to go home. We plan to discharge with home health once the durable medical equipment arrives. DISPOSITION: Home with home health. ACTIVITY: As tolerated. DIET: Low sodium. DISCHARGE MEDICATIONS: Please see the [facility]. Aspirin 325 a day, metoprolol 100 every day, p.r.n. oxycodone 5 mg q. 4 hours p.r.n., senna, allopurinol 300 a day, benazepril 20 a day, hydroxyurea 500 daily. Total time [address]: Alyssia TID: [id number]
[2021-10-04 11:00] VITALS: BP 119/68
--- NOTE | 2021-10-04 17:51 | NUR ---
Pt discharged to home at 1455 by EMS.
[2021-10-04] MEDS ORDERED: AZITHROMYCIN 250 MG TABLET. PO SCH (18:00)
== END 2021-10-04 14:55 | disposition home health service (06) | DRG 480 ==
LOC: ER 15:13 → 4 NORTH 19:19
PROVIDERS: ADMIT Internal Medicine; ATTEND Internal Medicine
PROC: 0QS736Z Reposition Left Upper Femur with Intramedullary Internal Fixation Device, Percutaneous Approach (ICD-10-PCS; principal; 2021-09-25 09:15)
DX: S72.142A Displaced intertrochanteric fracture of left femur, initial encounter for closed fracture (principal); U07.1 COVID-19; J12.82 Pneumonia due to coronavirus disease 2019; R65.10 Systemic inflammatory response syndrome (SIRS) of non-infectious origin without acute organ dysfunction; D45 Polycythemia vera; M10.9 Gout, unspecified; I10 Essential (primary) hypertension; W01.0XXA Fall on same level from slipping, tripping and stumbling without subsequent striking against object, initial encounter; Y93.89 Activity, other specified; Y92.89 Other specified places as the place of occurrence of the external cause; Y99.0 Civilian activity done for income or pay; Z82.49 Family history of ischemic heart disease and other diseases of the circulatory system; Z79.899 Other long term (current) drug therapy
CPT/HCPCS: 36415; 71045; 73502; 73552; 73560; 73590; 76000; 80048; 82306; 82607; 83735; 84100; 85007; 85025; 87426; 93005; 96374; 96375; 96376; A4213; A4930; A6223; A6402; A6454; C1713; J0456; J0690; J0696; J1100; J1170; J1650; J2060; J2250; J2270; J2405; J2704; J3010; J7050; J7120; U0003; 97116-GP; 97530-GO; 97530-GP; 97535-GO; 99285-25; G0378; J7030